=== PATIENT | male | born 1980 | race Caucasian/White ===

== ENCOUNTER → 2016-08-26 | Outpatient (CLI) | payer OTHER ==
[~2016-08-26] MED LIST: ALBUAER INH; LISI-461 PO; TPRSR25 PO
[2016-08-26 13:44] LABS: ALT/SGPT 28 U/L (12-78); AST/SGOT 18 U/L (15-37); BLOOD UREA NITROGEN 16 mg/dl (7-18); BUN/CREATININE RATIO 17.6 (10-20); CALCIUM 8.6 mg/dl (8.5-10.1); CARBON DIOXIDE 27 mmol/L (21-32); CHLORIDE 106 mmol/L (98-107); CHOLESTEROL 152 mg/dl (0-200); CREATININE 0.92 mg/dl (0.60-1.40); GLUCOSE 75 mg/dl (70-99); POTASSIUM 3.5 mmol/L (3.5-5.1); SODIUM 141 mmol/L (136-145); TRIGLYCERIDES 158 mg/dl (0-150); VERY LOW DENSITY LIPOPROT CALC 32 mg/dl
[2016-08-26 13:46] LABS: ALB/GLOB RATIO 1.3 (0.9-2); ALKALINE PHOSPHATASE 72 U/L (45-117); CHOLESTEROL/HDL RATIO 5.1; HDL CHOLESTEROL 30 mg/dl; LDL CHOLESTEROL CALCULATED 90 mg/dl
== END | disposition home or self-care (01) ==
LOC: C.LAB1850 11:40
PROVIDERS: ATTEND Internal Medicine Cardiovascular Disease
DX: Z00.00 Encounter for general adult medical examination without abnormal findings (principal); I42.9 Cardiomyopathy, unspecified; I47.1 Supraventricular tachycardia; I10 Essential (primary) hypertension; Z98.890 Other specified postprocedural states; Z72.0 Tobacco use

== ENCOUNTER → 2017-01-12 | Outpatient (CLI) | payer OTHER ==
--- NOTE | 2017-01-13 08:56 | PAP/PSG TECHNICIAN REPORT ---
[facility] Club Car Attendant Polysomnogram Report Study name: None Report date: 01/13/2017 Study date: 01/12/2017 Referring Physician: Adarsh Barros Name: FADI LACKEY Interpreting Physician: Jaime Arellano M.D. Date of : 1980 Club Car Attendant: Madeline Ramos [facility]. Sex: Male Age: 36 StudyType: PSG Weight: 280 lbs Height: 36 years, Height 5' 11" Neck Circum:18.5inches BMI: 39.05 Medications: Lisinopril, Metoprolol Patient History Study started on room air with no ETCO2 monitoring in room #8. 36 yr old male here tonight for a diagnostic psg. He was diagnosed with CASSIE and has auto cpap with a range of [id number]. He has lost about 15 pounds since his last study. He is here to see if there is a continued need for cpap treatment. He has not been using his cpap and he has no EDS. His ESS=4/14. Neck circ=18.5inches. He needs up at 4:25 am for work. Parameters Monitored NPSG: E1-M2, E2-M1, Fp1-M2, Fp2-M1, F3-M2, F4-M2, F4-M1, C3-M2, C4-M2, C4-M1, O1-M2, O2-M2, O2-M1, T3-M2, T4-M1, P3-M2, P4-M1, CHIN1, CHIN2, HR, EKG, Legs, PFLOW, SNOR, FLOW, CFLOW, Tidal Volume, THOR, ABDO, SpO2, PLTH, CPRESS, ETCO2 Wave, ETCO2, pH Sleep Architecture Sleep Stages Time at Lights Off 8:40:56 PM STAGES Time (min.) TST (%) Time at Lights On 4:25:26 AM Wake 82.0 -- Total Recording Time (TRT) 464.50 min. N1 23.0 6 Total Sleep Period (TSP) 413.0 min. N2 191.0 50 Total Sleep Time (TST) 382.5min. N3 73.0 19 Awake Time 82.0 min. REM 95.5 25 Wake after Sleep Onset 30.5 min. Sleep Efficiency (SE) 82 % Sleep Onset Latency (SALVADOR) 51.5 min. Number of Stage 1 Shifts None Awakenings 20 Stage Changes 91 Number of REM periods 8 REM 95.5 25 REM Latency 77.0 min. NREM 287.0 75 Body Position Analysis Supine Right Left Side Prone Vertical Total Sleep Time (min.) 4.9 138.7 201.5 340.15 55.0 0.0 Total Sleep Time (%) 0% 36% 53% 89 11% N/A% Total Sleep Time REM (min.) 0.0 58.5 34.0 None 3.0 0.0 Total Sleep Time NREM (min.) 0.0 80.2 167.5 None 39.3 0.0 Intermittent Wake (min.) 4.9 25.8 38.7 None 12.6 0.0 Total Sleep Period (%) 0% None None None None None Arousals Myoclonus (PLM) * Events Count Index Events Count Index Spontaneous 11 2 Events Awake (PLMW) 84 61.5 Respiratory 5 0.9 Events Asleep w/ Arousal (PLMA) 19 3.0 PLM 19 3 Events Asleep w/o Arousal (PLMS) 183 28.7 Snoring 8 1 Total Asleep 202 31.7 Total 43 7 Total 286 37 Respiratory Analysis * CA OA MA CH H RERA Total Count 0 2 0 0 36 0 38 Index 0.0 0.3 0.0 0 5.6 0 6.0 Mean Duration 0.0 18.3 0.0 0.00 25.8 0.0 25.4 Longest Duration 0.0 19.7 0.0 0.00 0.0 0.0 64.1 Respiratory Event Summary Total Supine ~Supine Right Left Prone REM NREM Apneas Count 2 N/A 2 0 2 0 0 2 Index 0.3 N/A 0 0.0 0.6 0 0 0 Hypopneas (4% Desat) Count 36 N/A 36 10 24 2 19 17 Index 5.6 N/A 6 4.3 7.1 2.8 11.9 3.6 Apneas & All Hypopneas Count 38 N/A 38 10 26 2 19 19 Index 6.0 N/A 6 4 8 3 11.9 4.0 Respiratory Events ([employer]+All Hyp+RERA) Count 38 N/A 38 10 26 2 19 19 Index 6.0 N/A 6 4.3 7.7 2.8 11.9 4.0 Respiratory Related Arousal Count 5 N/A 6 0 6 0 1 5 Index 0.9 N/A 1 0 2 0 1 1 Snoring Analysis Supine Right Left Prone REM NREM Total Snore duration 32.7 min Snores count N/A 468 739 468 121 1,554 1,675 Snore mean duration 1.2 Sec Snores index N/A 203 220 663 76.0 324.9 262.7 TST with snoring (%) 8.6% Desaturation Event Summary: Minimum %SpO2 Event Count Mean/Min/Max Duration(sec.) Desaturation Index % Time In Bed > 90 65 32.0 / 5.0 / 60.0 40.6 21.7 86 - 90 58 26.7 / 9.8 / 58.5 11.9 66.4 81 - 85 5 17.2 / 4.3 / 27.3 5.8 11.7 76 - 80 1 5.0 / 5.0 / 5.0 106.7 0.1 71 - 75 0 N/A 0.0 0.0 66 - 70 0 N/A 0.0 0.0 61 - 65 0 N/A 0.0 0.0 56 - 60 0 N/A 0.0 0.0 51 - 55 0 N/A 0.0 0.0 < 50 0 N/A 0.0 0.0 Total REM NREM Awake <50% 0.0 min. 0.0 min. 0.0 min. 0.0 min. 51 - 60% 0.0 min. 0.0 min. 0.0 min. 0.0 min. 61 - 70% 0.0 min. 0.0 min. 0.0 min. 0.0 min. 71 - 80% 0.6 min. 0.0 min. 0.2 min. 0.3 min. 81 - 90% 344.8 min. 72.8 min. 233.2 min. 38.8 min. 91 - 100% 96.0 min. 22.5 min. 39.3 min. 34.2 min. Average 89 88 88 90 Minimum SpO2 67 81 79 67 Desaturation Event Index 13.2 30.2 7.9 11.7 # Desat. Events below 89% 84 42 31 11 Time(%) with Saturation below 89% 44.6 10.3 32.5 1.8 Time(min.) with Saturation below 89% 197.0 45.5 143.6 7.8 Time (mins) REM (mins) NREM (mins) % of TST SpO2 Below 90% 85 48 N37 67.1 SpO2 Below 88% 35 0 0 35 Heart Rate Analysis Min (bpm) Max (bpm) Average (bpm) Awake 49 300 73 NREM 39 214 68 REM 49 85 65 Overall 39 214 67 Supplemental O2 Values Minimum O2 level: None Value Start Time End Time Club Car Attendant Comments Mr. Lackey slept in the right, left and prone positions. Cardiac arrhythmia and PLM's noted, see printouts. No bruxism noted. Snoring was noted and scored as a 2 on a scale of 1 through 5. (0=no snoring, 5=snoring loud enough to be heard through a closed door or down the [address] way). He did not use the restroom during the night. He stated that he slept a little worse than usual. He did not qualify for a split night study. The final report will be interpreted and signed by a sleep physician. The completed physician report will then be placed in the patient medical record. Therapy (cm H2O) 0 TIB (min.) 464.5 TST (min.) 382.5 Sleep Onset (min.) 51.5 REM Onset From Sleep (min.) 77.0 Sleep Efficiency % 82 Wakefulness (%) 18 Wakefulness (min.) 82.0 NREM 1 (%) 6 NREM 1 (min.) 23.0 NREM 2 (%) 50 NREM 2 (min.) 191.0 NREM 3 (%) 19 NREM 3 (min.) 73.0 REM (%) 25 REM (min.) 95.5 # Arousals 43 Arousal Index 7 # Snore 1,675 Snore Index 262.7 AHI 6.0 AHI Supine N/A AHI Non-Supine 6 NREM AHI 4.0 REM AHI 11.9 RDI 6.0 # Obstructive Apnea 2 # Central Apnea 0 # Mixed Apnea 0 # Hypopneas 36 RERAs 0 Total Respiratory Events 40 Time Below SpO2 89% (min.) 189.2 Mean NREM SpO2 (%) 88 Mean REM SpO2 (%) 88 Mean Sleep SpO2 (%) 88 Min NREM SpO2 (%) 79 Min REM SpO2 (%) 81 Position Supine (min.) 4.9 Position Non-supine (min.) 382.5 LM Index Sleep 31.7 LM Index NREM 38.7 LM Index REM 10.7 Mean Heart Rate (bpm) 67 Min Heart Rate (bpm) 39
--- NOTE | 2017-01-14 07:40 | POLYSOMNOGRAPH REPORT ---
CLINICAL DATA: A 36-year-old male with BMI of [address] Barros. He was diagnosed with sleep apnea and nocturnal hypoxemia. He was initially on CPAP 16 cm water pressure and mostly recently on auto CPAP. He lost 15 pounds and is here to see if he continues to need CPAP. He has no excessive daytime sleepiness. His [place] sleepiness score is 4/24. SLEEP ARCHITECTURE: Total recording time was 464.5 minutes. Total sleep period was 413 minutes. Total sleep time was 382.5 minutes, divided between 287 minutes of non-REM sleep and 95.5 minutes of REM sleep. Sleep onset latency was delayed at 51.5 minutes. REM latency was 77 minutes. Sleep efficiency was 82%. Wake after sleep onset was 30.5 minutes. Sleep consisted of stage N1 6%, stage N2 50%, stage N3 19%, and REM 25%. AROUSAL DATA: 43 arousals were recorded for an index of 7 per hour. 19 were due to PLMS events. PLM DATA: Mild to moderate PLMD was noted. There were 202 limb movements during sleep noted for an index of 31.7 per hour with arousal index of 3 per hour. RESPIRATORY DATA: Very mild sleep apnea was documented. The AHI was 6. There were 36 hypopneic episodes with mean duration of 25.8 seconds. OXIMETRY DATA: Nocturnal hypoxemia was seen. Oxygen debbie was 81% during REM. Mean saturation was 89%. Time below 88% was 35 minutes. EKG: Heart rates ranged from 39-85 beats per minute. Occasional PACs and PVCs were noted. RESOLUTION EXPERT'S COMMENTS: The patient slept in the right, left, and prone positions. Snoring was moderate, rated 2 on a scale of 1 through 5. IMPRESSION: Very mild sleep apnea/hypopnea with an AHI of 6 with nocturnal hypoxemia with an oxygen debbie of 79% and time below 88% of 35 minutes. RECOMMENDATIONS: The patient should continue to attempt to lose weight. He could be considered for use of an oral appliance, resumption of CPAP, or use of oxygen at night. Clinical correlation is needed. ADOLFO
== END | disposition home or self-care (01) ==
LOC: C.NEUR 20:00
DX: E66.01 Morbid (severe) obesity due to excess calories (principal); Z68.41 Body mass index [BMI] 40.0-44.9, adult; R09.02 Hypoxemia

== ENCOUNTER 2019-01-17 01:24 | Inpatient (IN) ==
[2019-01-17] MEDS ORDERED: ONDANSETRON INJ 2 MG/ML 2 ML VIAL IV STA (01:51)
[2019-01-17] MEDS ORDERED: MoRPHine SULFATE 4 MG/ML 1 ML CARP\\VIAL IV STA ×2 (01:51→04:16)
--- NOTE | 2019-01-17 01:59 | Emergency Department Note ---
History of Present Illness General Chief complaint: Flank Pain Stated complaint: PAIN IN SIDE, NAUSEA History of Present Illness Maximum Pain Intensity: 6 This 38-year-old presents to the ER complaining of right upper quadrant pain Location: Right upper quadrant Quality: Achy Severity: Moderate Duration: Tonight Timing: Started after eating peanut butter and jelly Context: Pain persisted and patient came in Modifying factors: better with nothing; worse with patient Patient states he has had problems with gallstones before. Symptoms feel somewhat similar. He still has his gallbladder. Patient denies chest pain, dyspnea, fevers, vomiting, diarrhea, urinary symptoms. Home Medications Home Medications Medication Instructions Recorded Confirmed Type lisinopril 20 1 tab PO DAILY #90 tab 11/05/18 01/17/19 Rx mg-hydrochlorothiazide 12.5 mg tablet metoprolol succinate ER 200 mg 200 mg PO DAILY #90 ea 11/05/18 01/17/19 Rx capsule sprinkle, ext. release 24 hr albuterol sulfate HFA 90 1 puffs INH Q6H PRN #6.7 gm 11/26/18 01/17/19 Rx mcg/actuation aerosol inhaler mometasone-formoterol HFA 200 2 puffs INH BID #13 gm 11/26/18 01/17/19 Rx mcg-5 mcg/actuation aerosol inhaler itraconazole 200 mg tablet 200 mg PO DAILY #30 tab 01/14/19 01/17/19 Rx Allergies Allergy/AdvReac Type Severity Reaction Status Date / Time No Known Allergies Allergy Unverified 01/17/19 02:01 Past Med/Surg History Medical History Cardiomyopathy (Acute) LBBB (left bundle branch block) (Acute) Obesity (Acute) Prediabetes (Acute) Sustained supraventricular tachycardia (Acute) Obstructive sleep apnea (Chronic) Polysomnography (03/16) demonstrated AHI 13.2, repeat (01/16) with AHI 6. Weight reduction recommended. No longer using CPAP. Tobacco use disorder (Chronic) In early remission. No pharmacologic intervention at this time. Hypertension (Chronic) Long standing managed with metoprolol + lisinopril + HCTZ Supraventricular tachycardia (Chronic) [place] to be due to concealed left-sided bypass tract, symptomatic episode (2014) s/p ablation. Initially with HFrEF now recovered. Continued on medical management with BB. Asthma (Chronic) Hx without PFTs on file. Managed with ICS/LABA + albuterol PRN Surgical History S/P ablation of accessory bypass tract (Acute) H/O cardiac radiofrequency ablation History of oral surgery Family History Other Adopted Social History marital status: Single Current Living Situation: Alone current occupational status: employed current occupation: cook Feels Safe at Home: Yes Smoking Status: Current every day smoker Hx Alcohol Use: Yes Alcohol Intake Frequency: Rarely Hx Substance Use: No Dental Care, Regularly: No Physical Activity Frequency: 1-2 Times per Week Seatbelt Use: always Sunscreen Use: Yes Review of Systems All systems reviewed & are unremarkable except as noted in HPI & below Physical Exam Vital Signs Vital Signs - 24 hr 01/17/19 01:34 01/17/19 03:09 01/17/19 03:58 Temperature 37.0 C Temperature Source Oral Sepsis Action Taken by Nursing No Action Required Oxygen Flow Rate - Titration Pulse Oximetry Post Tiitration Pulse Rate 91 H 72 81 Pulse Rate from SpO2 Sensor 73 79 Respiratory Rate 20 16 14 Respiratory Effort / Characteristics Non-Labored Spontaneous Respiratory Depth Normal Blood Pressure 144/99 H 163/104 H 134/100 Blood Pressure Mean 114 123 111 Pulse Oximetry 98 96 98 Oxygen Delivery Method Room Air Room Air 01/17/19 04:33 01/17/19 04:40 01/17/19 05:00 Temperature Temperature Source Sepsis Action Taken by Nursing Oxygen Flow Rate - Titration 2 Pulse Oximetry Post Tiitration 97 Pulse Rate 70 106 H Pulse Rate from SpO2 Sensor 64 88 Respiratory Rate 14 21 Respiratory Effort / Characteristics Respiratory Depth Blood Pressure 136/90 127/95 Blood Pressure Mean 105 105 Pulse Oximetry 99 87 L 100 Oxygen Delivery Method Room Air 01/17/19 05:30 Temperature Temperature Source Sepsis Action Taken by Nursing Oxygen Flow Rate - Titration Pulse Oximetry Post Tiitration Pulse Rate 64 Pulse Rate from SpO2 Sensor 65 Respiratory Rate 13 Respiratory Effort / Characteristics Respiratory Depth Blood Pressure 140/98 Blood Pressure Mean 112 Pulse Oximetry 99 Oxygen Delivery Method VITALS: Vitals are noted on the nurse's note and reviewed by myself. Vital signs stable. GENERAL: White male, in no acute distress, nondiaphoretic, well-developed well- nourished. SKIN: Capillary reflex less than 2 seconds. HEENT: Normocephalic. PERRLA. EOMI. Nares patent. Mucous membranes moist. Neck is supple without nuchal rigidity. HEART: Regular rate and rhythm without murmurs gallops or rubs. LUNGS: Clear to auscultation bilaterally without wheezes, rales or rhonchi. No retractions or accessory muscle use. ABDOMEN: Positive bowel sounds x 4. Normal tympanic percussion. Soft, tender to palpation right upper quadrant, without masses or organomegaly. No guardin g or rebound tenderness. No CVA tenderness MUSCULOSKELETAL: No gross musculoskeletal defects. NEURO: Patient was alert and oriented to person place and time. Normal sensation to light and sharp touch. No focal neurological deficits. Course Administered Medications Discontinued Medications Sodium Chloride (Nss 1000ml) 1,000 mls @ 999 mls/hr IV .Q1H1M FREDERICK Stop: 01/17/19 03:00 Last Infusion: 01/17/19 04:15 Dose: 0 mls/hr Documented by: [id number] Admin: 01/17/19 02:52 Dose: 999 mls/hr Documented by: [id number] Cefoxitin Sodium (Mefoxin) 2,000 mg in 60 mls @ 100 mls/hr IV NOW STA Stop: 01/17/19 05:46 Last Admin: 01/17/19 05:58 Dose: 100 mls/hr Documented by: [id number] Morphine Sulfate (Morphine Sulfate) 4 mg IV NOW STA Stop: 01/17/19 01:52 Last Admin: 01/17/19 02:52 Dose: 4 mg Documented by: [id number] Morphine Sulfate (Morphine Sulfate) 4 mg IV NOW STA Stop: 01/17/19 04:17 Last Admin: 01/17/19 04:23 Dose: 4 mg Documented by: [id number] Ondansetron HCl (Zofran) 4 mg IV NOW STA Stop: 01/17/19 01:52 Last Admin: 01/17/19 02:52 Dose: 4 mg Documented by: [id number] Medical Decision Making Medical Records Attestation: I reviewed the patient's medical records. Home Medications Current Medication List: was personally reviewed by me Laboratory Data Attestation: I reviewed the patient's lab results. Result diagrams: 01/17/19 01:58 01/17/19 01:58 Lab Results 01/17/19 01/17/19 01/17/19 Range/Units 01:58 01:58 02:10 WBC 8.01 (4.8-10.8) K/uL RBC 4.76 (4.7-6.1) M/uL Hgb 12.1 L (14.0-18.0) g/dL Hct 37.9 L (42-52) % MCV 79.6 L (80-100) fL MCH 25.4 (25-34) pg MCHC 31.9 L (32-36) g/dL RDW Std Deviation 51.2 H (36.4-46.3) fL RDW Coeff of Yazmin 17.8 H (11.5-14.5) % Plt Count 183 (130-400) K/uL MPV 9.4 (7.4-10.4) fL Immature Gran % (Auto) 0.5 % Neut % (Auto) 84.7 % Lymph % (Auto) 8.5 % [place] % (Auto) 5.2 % Eos % (Auto) 0.9 % Baso % (Auto) 0.2 % Immature Gran # (Auto) 0.04 H (0.00-0.02) K/uL Neut # (Auto) 6.78 H (1.4-6.5) K/uL Lymph # (Auto) 0.68 L (1.2-3.4) K/uL Harrison # (Auto) 0.42 (0.11-0.59) K/uL Eos # (Auto) 0.07 (0-0.5) K/uL Baso # (Auto) 0.02 (0-0.2) K/uL Sodium 137 (136-145) mmol/L Potassium 3.9 (3.5-5.1) mmol/L Chloride 102 (98-107) mmol/L Carbon Dioxide 30 (21-32) mmol/L Anion Gap 5.0 (3-11) BUN 12 (7-18) mg/dl Creatinine 1.16 (0.6-1.4) mg/dl Est Cr Clr Drug Dosing 117.7 ml/min Est GFR ( Amer) 90.8 Est GFR (Non-Af Amer) 78.3 BUN/Creatinine Ratio 10.6 (10-20) Glucose 122 H (70-99) mg/dl Calcium 8.8 (8.5-10.1) mg/dl Total Bilirubin 1.3 H (0.2-1) mg/dl AST 21 (15-37) U/L ALT 21 (12-78) U/L Alkaline Phosphatase 68 (45-117) U/L Total Protein 7.4 (6.4-8.2) gm/dl Albumin 3.6 (3.4-5.0) gm/dl Globulin 3.8 (2.5-4.0) gm/dl Albumin/Globulin Ratio 0.9 (0.9-2) Lipase 73 (73-393) U/L Urine Color Yellow Urine Appearance Clear (Clear) Urine pH 6.0 (4.5-7.5) Ur Specific [place] 1.021 (1.000-1.030) Urine Protein Negative (Negative) Urine Glucose (UA) Negative (Negative) Urine Ketones Negative (Negative) Urine Blood Negative (Negative) Urine Nitrite Negative (Negative) Urine Bilirubin Negative (Negative) Urine Urobilinogen Negative (Negative) Ur Leukocyte Esterase 1+ H (Negative) Urine WBC (Auto) 10-30 H (0-5) /hpf Urine RBC (Auto) 0-4 (0-4) /hpf U Hyaline Cast (Auto) 1-5 (0-5) /lpf U Epithel Cells (Auto) 5-10 H (0-5) /lpf Urine Bacteria (Auto) Negative (Negative) Imaging Data Attestation: I personally reviewed and interpreted this imaging study as follows: [facility] Narrative Prior records/ancillary studies reviewed. Triage Nursing notes reviewed. The patient's history was concerning for abdominal pain. Differential diagnosis: Etiologies such as appendicitis, diverticulitis, PUD, biliary pathology, UTI, pancreatitis, obstruction, mesenteric ischemia, aortic pathology, infections, inflammatory bowel disease, renal colic, as well as others were entertained. Physical examination findings: As above. ER treatment provided: Morphine, Zofran, IV fluids On reassessment the patient felt better. Diagnostics interpreted by me: The labs revealed no leukocytosis. Mild anemia. Imaging studies: US GALLBLADDER: Cholelithiasis. Nonspecific gallbladder wall thickening. Common bile duct within normal limits. Negative sonographic Ayala's sign. Correlate clinically regarding cholecystitis. Mild hepatomegaly. Radiologist: Karen Navarro M.D. Consultation: A consultation was placed with the surgeon Dr. Kinsey. The case was discussed and diagnostics were reviewed. He recommends medical admission and will evaluate the patient this morning. Medicine was consulted. Dr Cleveland was made aware of this patient. The patient was evaluated in the ER for further treatment. Exam and history seem consistent with acute cholecystitis. Surgery and medicine were consulted. Patient was placed on antibiotics. Patient is agreeable treatment plan of admission. Surgery is requesting medical admission for the patient's extensive medical history. By the evaluation outlined above emergent etiologies such as appendicitis, diverticulitis, PUD, biliary pathology, UTI, pancreatitis, obstruction, mesenteric ischemia, aortic pathology, infections, inflammatory bowel disease, renal colic, as well as others were deemed relatively unlikely. The pt informed about the findings as listed above. All questions were answered and pleased with the treatment. Case reviewed with my attending The chart was completed utilizing [employer] Speech voice recognition software. Grammatical errors, random word insertions, pronoun errors, and incomplete sentences are an occassional consequence of this system due to software limitations, ambient noise, and hardware issues. Any formal questions or concerns about the content, text, or information contained within the body of this dictation should be directly addressed to the physician library services assistant for clarification. Impression & Plan Acute cholecystitis Discharge Plan Visit Data Chief Complaint: Flank Pain Stated Complaint: PAIN IN SIDE, NAUSEA ED Provider: Azul Baker ED Midlevel Provider: Tram Zee Discharge Problem: Acute cholecystitis Patient Disposition: Being Evaluated by Hospitalist Condition: Good Forms Stand Alone Forms: My [facility] Prescriptions Prescriptions: No Action itraconazole 200 mg tablet 200 mg PO DAILY Qty: 30 RF: 0 albuterol sulfate 90 mcg/actuation HFA aerosol inhaler 1 puffs INH Q6H PRN (Reason: shortness of breath or wheezing) Qty: 6.7 RF: 0 Dulera 200-5 mcg/actuation HFA aerosol inhaler 2 puffs INH BID Qty: 13 RF: 0 metoprolol succinate 200 mg capsule,sprinkle,ER 24hr 200 mg PO DAILY Qty: 90 RF: 3 lisinopril-hydrochlorothiazide 20-12.5 mg tablet 1 tab PO DAILY Qty: 90 RF: 3 Referrals Referrals: Alfonso Tena MD [Primary Care Provider] -
[2019-01-17] MEDS ORDERED: SODIUM CHLORIDE 0.9% 1000ML 1,000 ML IV SCH (02:00)
[2019-01-17 02:32] LABS: Appearance Urine Clear (Clear); Bacteria Urine Automated Negative (Negative); Bilirubin Urine Negative (Negative); Blood Urine Negative (Negative); Color Urine Yellow; Glucose Urine UA Negative (Negative); Ketones Urine Negative (Negative); Leukocyte Esterase Urine 1+ (Negative); Nitrite Urine Negative (Negative); Protein Urine Negative (Negative); RBC Urine Automated 0-4 /hpf (0-4); Specific Gravity Urine 1.021 (1.000-1.030); Urobilinogen Urine Negative (Negative)
[2019-01-17 02:37] LABS: Basophils # (auto) 0.02 K/uL (0-0.2); Basophils % (auto) 0.2 %; Eosinophils # (auto) 0.07 K/uL (0-0.5); Eosinophils % (auto) 0.9 %; Hematocrit (blood only) 37.9 % (42-52); Hemoglobin 12.1 g/dL (14.0-18.0); Immature Granulocytes # (auto) 0.04 K/uL (0.00-0.02); Immature Granulocytes % (auto) 0.5 %; Lymphocytes # (auto) 0.68 K/uL (1.2-3.4); Lymphocytes % (auto) 8.5 %; Mean Corpuscular Hemoglobin 25.4 pg (25-34); Mean Corpuscular Hgb Conc 31.9 g/dL (32-36); Mean Corpuscular Volume 79.6 fL (80-100); Mean Platelet Volume 9.4 fL (7.4-10.4); Monocytes # (auto) 0.42 K/uL (0.11-0.59); Monocytes % (auto) 5.2 %; Neutrophils # (auto) 6.78 K/uL (1.4-6.5); Neutrophils % (auto) 84.7 %; Platelet Count 183 K/uL (130-400); RDW Coefficient of Variation 17.8 % (11.5-14.5); RDW Standard Deviation 51.2 fL (36.4-46.3); Red Blood Count 4.76 M/uL (4.7-6.1); White Blood Count 8.01 K/uL (4.8-10.8)
[2019-01-17 02:54] LABS: Albumin Level 3.6 gm/dl (3.4-5.0); BUN Creatinine Ratio 10.6 (10-20); Calcium 8.8 mg/dl (8.5-10.1); Creatinine Clr Calc Pharmacy 117.7 ml/min; Est GFR (African American) 90.8; Est GFR (Non-African American) 78.3; Potassium 3.9 mmol/L (3.5-5.1)
[2019-01-17 02:57] LABS: Albumin Globulin Ratio 0.9 (0.9-2); Bilirubin,Total 1.3 mg/dl (0.2-1); Globulin 3.8 gm/dl (2.5-4.0); Total Protein 7.4 gm/dl (6.4-8.2)
[2019-01-17] MEDS ORDERED: cefOXitin 2,000 MG/60 ML BAG IV STA (05:11)
--- NOTE | 2019-01-17 06:19 | Ultrasound Report ---
US gallbladder HISTORY: Pain ruq pain COMPARISON: None. FINDINGS: Several gallstones are present. 6 mm thickening of the gallbladder wall. No significant. Cystic/parac ystic cholecystic edematous change. Uniform liver. Common bile duct 5 mm. Pancreas and right kidney are unremarkable. IMPRESSION: 1. Gallstones. 2. Thickened gallbladder wall 6 mm. 3. Normal caliber bile ducts. The above report was generated using voice recognition software. It may contain grammatical, syntax or spelling errors. Electronically signed by: Rob aPdron M.D. 01/17/2019 6:18 AM
--- NOTE | 2019-01-17 06:26 | History & Physical Report ---
Date of Service January 17, 2019 Assessment & Plan (1) Acute cholecystitis: 38 y/o M Hx HTN, WPW, nonischemic cardiomyopathy, LBBB, obese, asthma, DM II, gallstones, CASSIE. Presents with RUQ pain and nausea. He denies a fever or vomiting. The pt states that he has had prior episodes of biliary colic but has not required intervention. Labs in the ER were notable for mild anemia which appears to be new. An US demonstrated several gallstones and thickening of the gallbladder wall. Of note, the pt has a small rash on his L arm which was recently diagnosed as fungal. He is prescribed Itraconazole but has not yet commenced this. 1) Gallstones with biliary colic - may be developing cholecystitis - clinically less likely. The pt will be evaluated by surgery. Considering his cardiac history, we have not cleared him for potential surgery and will consult his cook 3 pastry. Interestingly, he has an easily audible murmur which is not reported on prior exams and may therefore need an additional echo. 2) Anemia - new - low MCV - we will obtain a stool guaiac, iron profile and a repeat Hb at 6 hours to determine if there is any active bleeding. GI should be contacted in this case. 3) HTN - will continue Metoprolol and hold Lisinopril/HCTZ 4) Asthma - cont prescribed inhalers 5) Fungal rash - will start Itraconazole Full code - SCDs pending surgery eval Total time for this admit including review of labs, meds, records, imaging - discussion wih pt and ER attending - 40 min Present on Admission?: Yes History of Present Illness Chief Complaint: RUQ pain Primary Care Provider: Alfonso Tena MD 38 y/o M Hx HTN, WPW, nonischemic cardiomyopathy, LBBB, obese, asthma, DM II, gallstones, CASSIE. Presents with RUQ pain and nausea. He denies a fever or vomiting. The pt states that he has had prior episodes of biliary colic but has not required intervention. Labs in the ER were notable for mild anemia which appears to be new. An US demonstrated several gallstones and thickening of the gallbladder wall. Of note, the pt has a small rash on his L arm which was recently diagnosed as fungal. He is prescribed Itraconazole but has not yet commenced this. PMH: 1) Nonischemic cardiomyopathy - EF in 2017 was 45%. Pt states that this has since normalized. Cause was not determined. 2) HTN 3) Obese 4) CASSIE 5) Asthma 6) DM II - per recent A1C 7) Prior history of cholelithiasis/choledocholithiasis 8) WPW Surgical: Ablation for WPW 2017 Social: Quit smoking cigarettes recently - has taken up vaping instead. Does not drink. Employed at the [employer]. Family: Adopted - does not know biological history Allergies Allergy/AdvReac Type Severity Reaction Status Date / Time No Known Allergies Allergy Unverified 01/17/19 02:01 Home Medications Home Medications Medication Instructions Recorded Confirmed Type lisinopril 20 1 tab PO DAILY #90 tab 11/05/18 01/17/19 Rx mg-hydrochlorothiazide 12.5 mg tablet metoprolol succinate ER 200 mg 200 mg PO DAILY #90 ea 11/05/18 01/17/19 Rx capsule sprinkle, ext. release 24 hr albuterol sulfate HFA 90 1 puffs INH Q6H PRN #6.7 gm 11/26/18 01/17/19 Rx mcg/actuation aerosol inhaler mometasone-formoterol HFA 200 2 puffs INH BID #13 gm 11/26/18 01/17/19 Rx mcg-5 mcg/actuation aerosol inhaler itraconazole 200 mg tablet 200 mg PO DAILY #30 tab 01/14/19 01/17/19 Rx Past Med/Surg History Medical History Cardiomyopathy (Acute) LBBB (left bundle branch block) (Acute) Obesity (Acute) Prediabetes (Acute) Sustained supraventricular tachycardia (Acute) Obstructive sleep apnea (Chronic) Polysomnography (03/16) demonstrated AHI 13.2, repeat (01/16) with AHI 6. Weight reduction recommended. No longer using CPAP. Tobacco use disorder (Chronic) In early remission. No pharmacologic intervention at this time. Hypertension (Chronic) Long standing managed with metoprolol + lisinopril + HCTZ Supraventricular tachycardia (Chronic) [place] to be due to concealed left-sided bypass tract, symptomatic episode (2014) s/p ablation. Initially with HFrEF now recovered. Continued on medical management with BB. Asthma (Chronic) Hx without PFTs on file. Managed with ICS/LABA + albuterol PRN Surgical History S/P ablation of accessory bypass tract (Acute) H/O cardiac radiofrequency ablation History of oral surgery Family History Other Adopted Social History marital status: Single Current Living Situation: Alone current occupational status: employed current occupation: cook Feels Safe at Home: Yes Smoking Status: Current every day smoker Hx Alcohol Use: Yes Alcohol Intake Frequency: Rarely Hx Substance Use: No Dental Care, Regularly: No Physical Activity Frequency: 1-2 Times per Week Seatbelt Use: always Sunscreen Use: Yes Review of Systems Review of Systems: Gen: Denies fevers, night sweats, rigors, fatigue, malaise, weight loss/gain ENT: Denies congestion, throat pain, hearing loss Eyes: Denies acute visual changes CV: Denies CP, palpitations Pulmonary: Denies SOB, cough, wheezing GI: RUQ pain Neuro: Denies acute or unilateral weakness, acute gait impairment, headache or acute visual changes Musculoskeletal: Denies joint pain, inflammation Endocrine: Denies polydipsia, polyuria Skin: Rash on L arm Physical Exam Physical Exam: General: AAO x 3, no distress ENT: No erythema or exudates, no thrush Eyes: BRANDI, EOMI Head and neck: Normocephalic, atraumatic, No JVD, neck is supple. Chest/heart: Nontender, S1,2, RRR, 2/6 murmur Lungs: CTAB, no wheezing or crackles Abdomen: Mildly tender in upper quadrant Neuro: AAO x 3, speech is clear, no unilateral weakness or loss of sensation, coordination intact Musculoskeletal: No joint inflammation, muscle tenderness, FROM Skin: Dry scaly rash on L proximal arm Extremities: No clubbing, cyanosis, edema Results & Data Vital Signs (Past 12 Hours) Vital Signs Temp Pulse Resp BP Pulse Ox 01/17/19 05:30 64 13 140/98 99 01/17/19 05:00 106 H 21 127/95 100 01/17/19 04:40 87 L 08/18/19 04:33 70 14 136/90 99 01/17/19 03:58 81 14 134/100 98 01/17/19 03:09 72 16 163/104 H 96 01/17/19 01:34 98.6 F 91 H 20 144/99 H 98 Diagnostic Findings US abdomen: Several gallstones are present. 6 mm thickening of the gallbladder wall. Code Status & VTE Plan VTE Prophylaxis Plan VTE Prophylaxis will be ordered: Yes PG Care Time/CCT Total # of Minutes Spent Total Time Spent with Patient: Total time spent is greater than 50% in coordination of care (as documented) at patient's floor/unit and/or counseling patient:
[2019-01-17 08:09] LABS: Albumin Level 3.7 gm/dl (3.4-5.0); Bilirubin Direct 0.2 mg/dl (0-0.2); Bilirubin,Total 1.2 mg/dl (0.2-1); Total Protein 7.5 gm/dl (6.4-8.2)
[2019-01-17] MEDS ORDERED: NON-FORMULARY MEDICATION (Mometasone-Formoterol [Dulera] 2 PUFFS) INH SCH (09:12)
[2019-01-17] MEDS ORDERED: ACETAMINOPHEN 325 MG TAB PO PRN (09:12)
[2019-01-17] MEDS ORDERED: ALBUTEROL HFA 8 GM INHALER INH PRN ×2 (09:12)
[2019-01-17] MEDS ORDERED: ITRACONAZOLE 200 MG PO SCH ×2 (09:12)
[2019-01-17] MEDS ORDERED: METOPROLOL SUCCINATE 200 MG PO SCH (09:12)
[2019-01-17] MEDS ORDERED: MoRPHine SULFATE 4 MG/ML 1 ML CARP\\VIAL IV PRN (09:22)
[2019-01-17] MEDS: LACTATED RINGER'S 1,000 ML IV SCH ×2 (09:44→20:12)
[2019-01-17 10:01] LABS: Iron 38 mcg/dl (35-175); Total Iron Binding Capacity 243 mcg/dl (250-450)
--- NOTE | 2019-01-17 10:56 | Magnetic Resonance Report ---
Study: MRCP HISTORY: Right upper quadrant pain. COMPARISON: Ultrasound 01/17/2019 FINDINGS: Large gallstone in the gallbladder neck region. Edematous changes are gallbladder wall poss ibly with a trace amount of pericholecystic edematous change. Normal caliber bile ducts. Compromise resolution of the biliary ductal system due to respiratory and somatic motion. Probable spasm versus less likely possibility of filling defect distal common bile duct. No significa nt distention of the pancreatic duct. Configuration of the liver and spleen are otherwise unremarkable. Kidneys are negative for hydronephr osis. No significant abdominal adenopathy. IMPRESSION: 1. Mildly compromised exam due to respiratory and splenic motion. 2. Gallstones with gallbladder wall thickening as well as a probable component of pericholecystic russell matous change. 3. Appearance is suggestive of acute cholecystitis. 4. Normal caliber bile ducts. 5. Probable focal spasm distal common duct. Electronically signed by: Rob Padron M.D. 01/17/2019 10:53 AM
[2019-01-17] MEDS ORDERED: HYDROmorphone INJ 2 MG/ML SYR/VIAL IV PRN (11:06)
--- NOTE | 2019-01-17 11:20 | Surgery Consultation ---
Date of Consultation January 17, 2019 Assessment & Plan (1) Acute cholecystitis: clinically c/w cholecystitis keep npo/antibiotics MRCP for elevated Tbili shows no stone/likely distal spasm of CBD awaiting cardiac evaluation. tentatively planning lap jonathan tomorrow if ok with cardiology discussed risks ( bleeding/infection/dvt/pe/mi/cva/bile leaks/injury to another organ etc...) questions answered. pt agreeable. (2) Cardiomyopathy: (3) LBBB (left bundle branch block): History of Present Illness Attending Physician: John Anthony History of Present Illness pt starting having epigastric pain last night around 6 pm. some nausea. presented to ER and US shows likely cholecystitis. Allergies Allergy/AdvReac Type Severity Reaction Status Date / Time No Known Allergies Allergy Unverified 01/17/19 02:01 Home Medications Home Medications Medication Instructions Recorded Confirmed Type lisinopril 20 1 tab PO DAILY #90 tab 11/05/18 01/17/19 Rx mg-hydrochlorothiazide 12.5 mg tablet metoprolol succinate ER 200 mg 200 mg PO DAILY #90 ea 11/05/18 01/17/19 Rx capsule sprinkle, ext. release 24 hr albuterol sulfate HFA 90 1 puffs INH Q6H PRN #6.7 gm 11/26/18 01/17/19 Rx mcg/actuation aerosol inhaler mometasone-formoterol HFA 200 2 puffs INH BID #13 gm 11/26/18 01/17/19 Rx mcg-5 mcg/actuation aerosol inhaler itraconazole 200 mg tablet 200 mg PO DAILY #30 tab 01/14/19 01/17/19 Rx Patient History Medical History Cardiomyopathy (Acute) LBBB (left bundle branch block) (Acute) Obesity (Acute) Prediabetes (Acute) Sustained supraventricular tachycardia (Acute) Obstructive sleep apnea (Chronic) Polysomnography (03/16) demonstrated AHI 13.2, repeat (01/16) with AHI 6. Weight reduction recommended. No longer using CPAP. Tobacco use disorder (Chronic) In early remission. No pharmacologic intervention at this time. Hypertension (Chronic) Long standing managed with metoprolol + lisinopril + HCTZ Supraventricular tachycardia (Chronic) [place] to be due to concealed left-sided bypass tract, symptomatic episode (2014) s/p ablation. Initially with HFrEF now recovered. Continued on medical management with BB. Asthma (Chronic) Hx without PFTs on file. Managed with ICS/LABA + albuterol PRN Surgical History S/P ablation of accessory bypass tract (Acute) H/O cardiac radiofrequency ablation History of oral surgery Family History Other Adopted Social History marital status: Single Current Living Situation: Alone current occupational status: employed current occupation: cook Feels Safe at Home: Yes Smoking Status: Current every day smoker Hx Alcohol Use: Yes Alcohol Intake Frequency: Rarely Hx Substance Use: No Dental Care, Regularly: No Physical Activity Frequency: 1-2 Times per Week Seatbelt Use: always Sunscreen Use: Yes Review of Systems Review of Systems: All systems reviewed & are unremarkable except as noted in HPI & below Physical Exam Constitutional: WD/WN, vitals as above no acute distress and not ill appearing Eyes: PERRL, conjunctivae normal, anicteric sclerae EOM intact bilaterally ENMT: external ear and nose normal, oropharynx normal Ears: no hearing impairment Neck: trachea midline, no thyromegaly Respiratory: normal respiratory effort; no respiratory distress and does not use accessory muscles Cardiovascular: Rate/Rhythm: regular rate and regular rhythm Gastrointestinal (Abdomen): soft. +epigastric/RUQ ttp. +guarding. no rigidity. Skin: no rashes, warm and dry Psychiatric: Orientation: alert, oriented x 3 and cooperative Results & Data Vital Signs (Past 12 Hours) Vital Signs Temp Pulse Pulse Resp BP BP Pulse Ox 01/17/19 08:23 36.9 C 65 18 158/106 H 96 01/17/19 08:15 78 22 149/108 H 98 01/17/19 05:30 64 13 140/98 99 01/17/19 05:00 106 H 21 127/95 100 01/17/19 04:40 87 L 01/17/19 04:33 70 14 136/90 99 01/17/19 03:58 81 14 134/100 98 01/17/19 03:09 72 16 163/104 H 96 01/17/19 01:34 37.0 C 91 H 20 144/99 H 98 PG Care Time/CCT Total # of Minutes Spent Total Time Spent with Patient: Total time spent is greater than 50% in coordination of care (as documented) at patient's floor/unit and/or counseling patient:
[2019-01-17] MEDS: HYDROmorphone INJ 1 MG/ML SYRINGE IV PRN ×2 (11:22→17:04)
[2019-01-17] MEDS: METOPROLOL SUCC 50MG EXT REL TAB PO SCH (11:38)
[2019-01-17] MEDS: ACETAMINOPHEN 1,000 MG/100 ML VIAL IV SCH ×2 (11:38→20:12)
--- NOTE | 2019-01-17 15:06 | Cardiology Consultation ---
Date of Consultation January 17, 2019 Assessment & Plan (1) Cardiomyopathy: The patient was diagnosed with a nonischemic cardiomyopathy in November 2014. Fortunately, that has resolved. His most recent echocardiogram performed in January 2016 noted normal left ventricular systolic ejection fraction of 55-60%. He continues on metoprolol succinate and lisinopril. (2) LBBB (left bundle branch block): This represents a chronic finding. (3) Supraventricular tachycardia: The patient had an ablation of a concealed left-sided bypass tract back in November 2014. No a arrhythmias since that time. (4) Preoperative cardiovascular examination: Acceptable cardiac risk for a cholecystectomy. Would consider a baseline EKG and chest x-ray. History of Present Illness Attending Physician: John Anthony History of Present Illness Mr. Floyd is a 38-year-old male admitted earlier today with acute cholecystitis. This consultation was ordered as a preoperative evaluation. Of note, the patient typically follows with Dr. Mendes in the outpatient setting. The patient was in his usual state of health until last evening at approximately 7 p.m.. He had the abrupt onset of a left-sided abdominal discomfort. The patient explains that he experienced this previously, however, never his severe as it was last night. He eventually presented to the emergency room for further care. He was diagnosed with acute cholecystitis and admitted for a surgical intervention. The patient is vigorous on a daily basis. 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 He explains that he is up and down stairs all day. He also takes his dog on a hike several days each week. He has never experienced exertional chest pain or limiting dyspnea. He further denies syncope, presyncope, PND, orthopnea, palpitations, lower extremity edema, and claudication. The patient's cardiac history began in November 2014 when he presented with refractory, symptomatic supraventricular tachycardia. He was taken urgently to the EP lab and Dr. Hoover ablated a concealed left-sided bypass tract. 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 In any event, he has done well from arrhythmia standpoint. At that same time, he was diagnosed with a nonischemic cardiomyopathy. His ejection fraction was 30-40%. He was placed on lisinopril and a long-acting beta-soren and fortunately, his left ventricular systolic function improved. An echocardiogram performed in January 2016 noted ejection fraction 55-60%. He will remain on his medications indefinitely. Currently, patient is resting comfortably in bed without complaints. His parents are at the bedside. Past medical and surgical history 1. Hypertension 2. Nonischemic slmqmgqvlmeoch-qvunpdns-isq above 3. Uttsz-Dehanjbcd-Giwft syndrome 4. Concealed left-sided bypass tract-radiofrequency ablation, November 2014 5. LBBB 6. Obesity 7. Obstructive sleep apnea 8. Asthma Social history Works as a cook at the [employer] Quit tobacco use 2 months ago. Ten pack year history Occasional alcohol Family history Unknown as the patient was adopted Review of systems A 10 point review of systems was negative except for that described above. Allergies Allergy/AdvReac Type Severity Reaction Status Date / Time No Known Allergies Allergy Unverified 01/17/19 02:01 Home Medications Home Medications Medication Instructions Recorded Confirmed Type lisinopril 20 1 tab PO DAILY #90 tab 11/05/18 01/17/19 Rx mg-hydrochlorothiazide 12.5 mg tablet metoprolol succinate ER 200 mg 200 mg PO DAILY #90 ea 11/05/18 01/17/19 Rx capsule sprinkle, ext. release 24 hr albuterol sulfate HFA 90 1 puffs INH Q6H PRN #6.7 gm 11/26/18 01/17/19 Rx mcg/actuation aerosol inhaler mometasone-formoterol HFA 200 2 puffs INH BID #13 gm 11/26/18 01/17/19 Rx mcg-5 mcg/actuation aerosol inhaler itraconazole 200 mg tablet 200 mg PO DAILY #30 tab 01/14/19 01/17/19 Rx Patient History Medical History Cardiomyopathy (Acute) LBBB (left bundle branch block) (Acute) Obesity (Acute) Prediabetes (Acute) Sustained supraventricular tachycardia (Acute) Obstructive sleep apnea (Chronic) Polysomnography (03/16) demonstrated AHI 13.2, repeat (01/16) with AHI 6. Weight reduction recommended. No longer using CPAP. Tobacco use disorder (Chronic) In early remission. No pharmacologic intervention at this time. Hypertension (Chronic) Long standing managed with metoprolol + lisinopril + HCTZ Supraventricular tachycardia (Chronic) [place] to be due to concealed left-sided bypass tract, symptomatic episode (2014) s/p ablation. Initially with HFrEF now recovered. Continued on medical management with BB. Asthma (Chronic) Hx without PFTs on file. Managed with ICS/LABA + albuterol PRN Surgical History S/P ablation of accessory bypass tract (Acute) H/O cardiac radiofrequency ablation History of oral surgery Family History Other Adopted Social History Preferred Language: Slovak Communication Ability: Effective Field Laboratory Operator Required: No Beliefs That Will Affect Care: None marital status: Single Current Living Situation: Alone current occupational status: employed current occupation: cook Feels Safe at Home: Yes Smoking Status: Former smoker Second Hand Exposure: No ; Hx Alcohol Use: Yes Alcohol type: beer Alcohol Intake Frequency: Rarely Hx Substance Use: No Dental Care, Regularly: No Physical Activity Frequency: 1-2 Times per Week Seatbelt Use: always Sunscreen Use: Yes Physical Exam Physical Exam: In general this is an obese white male in no acute distress. HEENT exam is negative. Neck is supple with full carotid upstrokes. There are no carotid bruits. Jugular venous pressure is flat at 90. There is no thyromegaly. Cardiovascular exam reveals a regular rhythm with a normal S1 and S2. No S3, S4, or murmurs are noted. Lungs are clear without rales, rhonchi, or wheezes. Abdomen is soft without bruits. Extremities reveal intact radial artery and posterior tibial pulses bilaterally. There is no peripheral edema. Results & Data Vital Signs (Past 12 Hours) Vital Signs Temp Pulse Pulse Resp BP BP Pulse Ox 01/17/19 08:23 36.9 C 65 18 158/106 H 96 01/17/19 08:15 78 22 149/108 H 98 01/17/19 05:30 64 13 140/98 99 01/17/19 05:00 106 H 21 127/95 100 01/17/19 04:40 87 L 01/17/19 04:33 70 14 136/90 99 01/17/19 03:58 81 14 134/100 98 01/17/19 03:09 72 16 163/104 H 96 Laboratory Results PEDIATRIC ALLERGIST notes a hemoglobin of 12.1, hematocrit 37.9, white count 8.0, and platelet count [id number]. The electrolytes note the sodium 137, potassium 3.9, chloride 102, bicarb 30, BUN 12, creatinine 1.16, glucose 122. Diagnostic Findings Gallbladder ultrasound notes a thickened gallbladder wall with evidence of gallstones. MRCP notes gallstones, gallbladder wall thickening, and localized edematous changes. PG Care Time/CCT Total # of Minutes Spent Total Time Spent with Patient: Total time spent is greater than 50% in coordination of care (as documented) at patient's floor/unit and/or counseling patient:
[2019-01-17] MEDS: DULERA - ORDER AWAITING ACTION SCH (16:36)
[2019-01-17] MEDS: AMPICILLIN/SULBACTAM SOD 3,000 MG in 0.9 % SODIUM CHLORIDE 100 ML IV SCH ×2 (17:05→21:57)
--- NOTE | 2019-01-17 17:19 | XRay Report ---
XR chest 1V portable CLINICAL HISTORY: pre-op clearance preop COMPARISON STUDY: 12/29/2014 FINDINGS: Moderate cardiomegaly. Lungs are clear. Diaphragms are smooth. IMPRESSION: Moderate cardiomegaly. Otherwise negative study. The above report was generated using voice recognition software. It may contain grammatical, syntax or spelling errors. Electronically signed by: Rob Padron M.D. 01/17/2019 5:17 PM
[2019-01-18] MEDS: DULERA - ORDER AWAITING ACTION SCH ×3 (00:17→15:25)
[2019-01-18] MEDS: ACETAMINOPHEN 1,000 MG/100 ML VIAL IV SCH ×3 (04:28→20:36)
[2019-01-18] MEDS: LACTATED RINGER'S 1,000 ML IV SCH ×3 (04:28→15:25)
[2019-01-18] MEDS: AMPICILLIN/SULBACTAM SOD 3,000 MG in 0.9 % SODIUM CHLORIDE 100 ML IV SCH ×4 (04:58→22:28)
[2019-01-18] MEDS ORDERED: PROPOFOL IV EMULSION 10 MG/ML 20 ML VIAL IV ONE (07:43)
[2019-01-18] MEDS ORDERED: MIDAZOLAM HCL 1 MG/ML 2ML VIAL ONE (07:43)
[2019-01-18] MEDS ORDERED: fentaNYL citrate 100 MCG/2 ML VIAL ONE (07:43)
[2019-01-18] MEDS ORDERED: LIDOCAINE HCL 2% 2 ML VIAL/AMP(20MG/ML) INFIL ONE (07:43)
[2019-01-18 07:45] LABS: Albumin Level 3.3 gm/dl (3.4-5.0); Bilirubin Direct 0.3 mg/dl (0-0.2); Bilirubin,Total 1.7 mg/dl (0.2-1); Total Protein 7.3 gm/dl (6.4-8.2)
[2019-01-18] MEDS: METOPROLOL SUCC 50MG EXT REL TAB PO SCH (08:02)
--- NOTE | 2019-01-18 08:08 | History & Physical Bridge Note ---
Date of Service January 18, 2019 History & Physical Bridge Note I have examined the patient, reviewed the History & Physical and in the interval since the performance of the History & Physical I have noted the following changes of clinical significance: no changes noted ok per cardiology. will proceed with zack castillo today.
[2019-01-18] MEDS ORDERED: ATROPINE SULFATE 0.1 MG/ML 10ML SYR IV PRN (08:35)
[2019-01-18] MEDS ORDERED: ONDANSETRON INJ 2 MG/ML 2 ML VIAL IV PRN (08:35)
[2019-01-18] MEDS ORDERED: PROMETHAZINE HCL 6.25 MG in SODIUM CHLORIDE 0.9% 50 ML IV PRN (08:35)
[2019-01-18] MEDS ORDERED: ePHEDrine sulfate 50 MG/ML AMP IV PRN (08:35)
--- NOTE | 2019-01-18 08:35 | Anesthesiology Consultation ---
Date of Service January 18, 2019 HTN Obesity Hx SVT E-cigarette use CASSIE (Non compliant with CPAP) Assessment & Plan (1) Encounter for pre-operative examination: Chart Review Chart Review: Acceptable Risk for Surgery and Patient NOT seen in Pre Admission Testing Consults Requested none ASA ASA2 Proposed Anesthesia Anesthesia Type: General Risk / Benefits Reviewed With: PT / POA / Parent / Guardian, Accepts Plan and Informed Consent Obtained History Surgery Operation Date: 01/17/19 07:00 Proposed Procedures p Laparoscopic Cholecystectomy - Sang Kinsey DO Operation Date: 01/18/19 08:35 Proposed Procedures p Laparoscopic Cholecystectomy - Sang Kinsey, DO Height/Weight Height: 5 ft 11 in Weight: 132.8 kg Allergies Allergy/AdvReac Type Severity Reaction Status Date / Time No Known Allergies Allergy Unverified 01/17/19 02:01 Medications Home Medications Medication Instructions Recorded Confirmed Last Taken lisinopril 20 1 tab PO DAILY #90 tab 11/05/18 01/17/19 Unknown mg-hydrochlorothiazide 12.5 mg tablet metoprolol succinate ER 200 mg 200 mg PO DAILY #90 ea 11/05/18 01/17/19 Unknown capsule sprinkle, ext. release 24 hr albuterol sulfate HFA 90 1 puffs INH Q6H PRN #6.7 gm 11/26/18 01/17/19 Unknown mcg/actuation aerosol inhaler mometasone-formoterol HFA 200 2 puffs INH BID #13 gm 11/26/18 01/17/19 Unknown mcg-5 mcg/actuation aerosol inhaler itraconazole 200 mg tablet 200 mg PO DAILY #30 tab 01/14/19 01/17/19 Unknown Active Medications Generic Name Dose Route Start Last Admin Trade Name Freq PRN Reason Stop Dose Admin Hydromorphone HCl 1 mg 01/17/19 11:06 01/17/19 17:04 Dilaudid IV 01/31/19 11:05 1 mg Q1H PRN Administration Pain Lactated Ringer's 1,000 mls @ 125 mls/hr 01/17/19 09:12 01/18/19 06:32 Lr IV 02/16/19 09:11 125 mls/hr .Q8H [facility] Infusion Acetaminophen 1,000 mg in 100 mls @ 400 mls/hr 01/17/19 12:00 01/18/19 04:49 Ofirmev IV 02/16/19 11:59 Infused Q8H [facility] In[facility] Ampicillin Sodium/Sulbactam 108 mls @ 200 mls/hr 01/17/19 17:00 01/18/19 05:41 Sodium 3,000 mg/ Sodium IV 01/27/19 16:59 Infused Chloride Q6H [facility] In[facility] Protocol Metoprolol Succinate 200 mg 01/17/19 09:12 01/18/19 08:02 Toprol Xl PO 02/16/19 06:30 200 mg DAILY [facility] Administration Miscellaneous 1 ea 01/17/19 16:00 01/18/19 07:41 Order Awaiting Action N/A 02/16/19 15:59 Not Given QS [facility] NPO Date Last Intake of Fluids: 01/18/19 Time Last Intake of Fluids: 08:00 Last Intake of Fluids Comment: sip of water with medications Date Last Intake of Solids: 01/17/19 Time Last Intake of Solids: 23:59 Past Medical History Medical History Cardiomyopathy (Acute) LBBB (left bundle branch block) (Acute) Obesity (Acute) Prediabetes (Acute) Sustained supraventricular tachycardia (Acute) Obstructive sleep apnea (Chronic) Polysomnography (03/16) demonstrated AHI 13.2, repeat (01/16) with AHI 6. Weight reduction recommended. No longer using CPAP. Tobacco use disorder (Chronic) In early remission. No pharmacologic intervention at this time. Hypertension (Chronic) Long standing managed with metoprolol + lisinopril + HCTZ Supraventricular tachycardia (Chronic) Willet to be due to concealed left-sided bypass tract, symptomatic episode (2014) s/p ablation. Initially with HFrEF now recovered. Continued on medical management with [facility]. Asthma (Chronic) Hx without PFTs on file. Managed with ICS/LABA + albuterol PRN Exercise / Class Metabolic Activity II 4-5 Yardwork/Stairs/Walk up hill Past Family History Family History Other Adopted Past Surgical History Surgical History S/P ablation of accessory bypass tract (Acute) H/O cardiac radiofrequency ablation History of oral surgery Past Anesthesia History No Hx of Anesthesia Complications and No Family Hx of Anesthesia Complications History of PONV No Hx of PONV and No Hx of Motion Sickness Social History Smoking Status: Former smoker tobacco type: e-cigarettes Do You Dip or Chew Tobacco: No Hx Alcohol Use: Yes Alcohol type: beer alcohol intake frequency: holidays/special occasions only Hx Substance Use: No Physical Exam Vital Signs Last Vital Signs Temp 37.0 C 01/18/19 07:35 Pulse 64 01/18/19 07:35 Resp 18 01/18/19 07:35 BP 128/86 01/18/19 07:35 Pulse Ox 93 01/18/19 07:35 ENMT Mouth: no dentition abnormality Thyromental Distance: > or= 3.5 Finger Breadths Mallampati Class: II Neck normal visual inspection Respiratory normal respiratory effort Auscultation: lungs clear to auscultation bilaterally Cardiovascular Rate/Rhythm: regular rate and regular rhythm Psychiatric Orientation: alert Testing Laboratory Results 01/17/19 12:56 01/17/19 01:58 Urine Color Yellow 01/17/19 02:10 Urine Appearance Clear (Clear) 01/17/19 02:10 Urine pH 6.0 (4.5-7.5) 01/17/19 02:10 Ur Specific [place] 1.021 (1.000-1.030) 01/17/19 02:10 Urine Protein Negative (Negative) 01/17/19 02:10 Urine Glucose (UA) Negative (Negative) 01/17/19 02:10 Urine Ketones Negative (Negative) 01/17/19 02:10 Urine Nitrite Negative (Negative) 01/17/19 02:10 Ur Leukocyte Esterase 1+ (Negative) H 01/17/19 02:10 Urine WBC (Auto) 10-30 /hpf (0-5) H 01/17/19 02:10 Urine RBC (Auto) 0-4 /hpf (0-4) 01/17/19 02:10 U Hyaline Cast (Auto) 1-5 /lpf (0-5) 01/17/19 02:10 U Epithel Cells (Auto) 5-10 /lpf (0-5) H 01/17/19 02:10 Urine Bacteria (Auto) Negative (Negative) 01/17/19 02:10 01/18/19 01/17/19 06:02 21:08 POC Glucose 99 112 H Electrocardiogram Date: 01/17/19 Findings: + NSR @
[2019-01-18] MEDS ORDERED: BUPIVACAINE/EPINEPHRINE 0.5% MPF 1:200,000 30 ML VIAL ONE (08:46)
[2019-01-18] MEDS ORDERED: ROCURONIUM BROMIDE 10 MG/ML 5 ML VIAL ONE (09:00)
[2019-01-18] MEDS ORDERED: CEFAZOLIN 250 MG/ML 1 GM VIAL ONE (09:00)
[2019-01-18] MEDS ORDERED: GLYCOPYRROLATE 0.2 MG/ML VIAL ONE ×2 (09:08→09:58)
[2019-01-18] MEDS ORDERED: NEOSTIGMINE METHYLSULFATE 5 MG/5 ML SYR ONE (09:08)
[2019-01-18 09:11] LABS: Hematocrit (blood only) 39.3 % (42-52); Hemoglobin 12.5 g/dL (14.0-18.0); Mean Corpuscular Hemoglobin 25.6 pg (25-34); Mean Corpuscular Hgb Conc 31.8 g/dL (32-36); Mean Corpuscular Volume 80.5 fL (80-100); Mean Platelet Volume 9.5 fL (7.4-10.4); Platelet Count 210 K/uL (130-400); RDW Standard Deviation 52.7 fL (36.4-46.3); Red Blood Count 4.88 M/uL (4.7-6.1); White Blood Count 10.08 K/uL (4.8-10.8)
[2019-01-18 09:43] LABS: BUN Creatinine Ratio 9.8 (10-20); Calcium 8.9 mg/dl (8.5-10.1); Creatinine Clr Calc Pharmacy 142.2 ml/min; Est GFR (African American) 114.1; Est GFR (Non-African American) 98.5
--- NOTE | 2019-01-18 10:01 | Operative Report ---
Post Operative Report Pre & Post Diagnosis Operation Date: 01/17/19 07:00 <No data on this case meets the specified criteria> Operation Date: 01/18/19 08:35 Pre-Op Diagnosis: cholecystitis Post-Op Diagnosis: acute cholecystitis Procedure Operation Date: 01/17/19 07:00 <No data on this case meets the specified criteria> Operation Date: 01/18/19 08:35 Actual Procedures p Laparoscopic Cholecystectomy - Sang Kinsey DO Surgeon Sang Kinsey DO Inspector Barrel tayler Sim Estimated Blood Loss 20 Findings Consistent with Post-Op Diagnosis Specimens gallbladder Description of Procedure After informed consent was obtained the patient was taken to the operating room and placed in the supine position. After successful intubation the abdomen was sterilely prepped and draped in usual fashion. A periumbilical incision was made with an 11 blade scalpel and carried down through the soft tissue using electrocautery. The anterior rectus fascia was opened using electrocautery and 2 #0 Vicryl stay sutures were placed. The peritoneum was elevated with hemostats and incised under direct vision using Metzenbaum scissors. A finger sweep was performed and a 12 mm Brink trocar was placed. The abdomen was insufflated to 20 mmHg. The laparoscope was inserted and the abdomen was examined in 360. No gross abnormalities were identified other than the gallbladder was obviously grossly inflammed. A subxiphoid 5 mm port and 2 right upper quadrant 5 mm ports were placed under direct vision. The patient was placed in a reverse Trendelenburg position and slightly airplaned to the left. Initially the gallbladder was too inflamed to grab with graspers. I therefore use a gallbladder needle and syringe to suck out about 30 cc of clear fluid indicating a cystic duct obstruction. Once we drained the gallbladder, the gallbladder was grasped and elevated superiorly and laterally. A [place] dissector was used to take down adhesions around the neck of the gallbladder. The cystic duct was identified and skeletonized. It was clipped twice proximally and once distally and transected using a laparoscopic scissor. In similar fashion the cystic artery was identified and skeletonized clipped and divided. There was also a posterior branch that was clipped and divided also. The gallbladder was removed from the gallbladder fossa with electrocautery. It was placed into an Endo Catch bag. Thorough irrigation was performed. At the end of the procedure there was adequate hemostasis and no evidence of any bile leaks. A final look around the abdomen showed no other abnormalities. The gallbladder and trochars were all removed and the abdomen was desufflated. I did have to extend the periumbilical incision to get the gallbladder and stones out. The fascia of the camera port was closed using 0 Vicryl in a [id number] fashion. All the wounds were irrigated and closed using 3-0 Vicryl and 4-0 Monocryl. Marcaine was injected around them for postoperative analgesia and skin glue used as a dressing. The patient was awaken extubated and transferred to recovery in stable condition. My physician's esol teacher assistant was present throughout the entire case... helped with prepping the patient. With exposure for trocar placement, as well as retracted the gallbladder throughout the case and also assisted with wound closure and dressing placement. I attest to the content of the Intraoperative Record and any orders documented therein. Any exceptions are noted below.
[2019-01-18] MEDS: fentaNYL citrate 100 MCG/2 ML VIAL IV PRN ×4 (10:03→10:18)
[2019-01-18] MEDS ORDERED: TRAMADOL HCL 50 MG TABLET PO PRN (10:50)
--- NOTE | 2019-01-18 10:52 | Anesthesiology Progress Note ---
Date of Service January 18, 2019 Anesthesia Post Procedure Vital Signs Vital Signs: Temp Pulse Pulse Resp BP Pulse Ox 01/18/19 10:45 37.0 C 62 18 116/74 92 01/18/19 10:36 37.2 C 60 15 103/74 92 01/18/19 10:25 56 L 18 112/67 95 01/18/19 10:15 63 18 116/81 95 01/18/19 10:05 36.9 C 53 L 18 117/83 96 01/18/19 09:57 36.9 C 42 L 18 119/58 L 99 01/18/19 08:38 36.9 C 76 18 136/98 92 01/18/19 07:35 37.0 C 64 18 128/86 93 01/18/19 06:07 36.9 C 64 16 137/92 92 01/17/19 22:58 36.8 C 66 16 126/77 92 01/17/19 16:37 57 L 145/82 H 01/17/19 15:28 36.7 C 65 18 156/111 H 93 Pain Intensity Right Upper Abdomen: Pain Intensity: 4 Transfer of Care Handoff Completed per policy Notes Mental Status: alert / awake / arousable Patient Amnestic to Procedure: Yes Nausea / Vomiting: adequately controlled Pain: adequately controlled Airway Patency, RR, SpO2: stable & adequate BP & HR: stable & adequate Hydration State: stable & adequate Anesthetic Complications: no major complications apparent
[2019-01-18] MEDS ORDERED: ONDANSETRON INJ 2 MG/ML 2 ML VIAL ONE (11:02)
--- NOTE | 2019-01-18 14:02 | Hospitalist Progress Note ---
Date of Service January 18, 2019 Assessment & Plan (1) Acute cholecystitis: US demonstrated several gallstones and thickening of the gallbladder wall. Cholecystectomy 01/18 Cardiology consulted for surgical clearance due to cardiac history (2) LBBB (left bundle branch block): chronic (3) Cardiomyopathy: Diagnosed with a nonischemic cardiomyopathy in November 2014. now resolved. His most recent echocardiogram performed in January 2016 noted normal left ventricular systolic ejection fraction of 55-60%. Continue metoprolol succinate and lisinopril. (4) S/P ablation of accessory bypass tract: The patient had an ablation of a concealed left-sided bypass tract back in November 2014. No arrhythmias since that time. (5) Hypertension: continue Metoprolol and hold Lisinopril/HCTZ (6) Asthma: cont prescribed inhalers (7) Anemia: New - low MCV - we will obtain a stool guaiac, iron profile and a repeat Hb at 6 hours to determine if there is any active bleeding. GI should be contacted in this case. (8) Rash: Fungal rash - continue Itraconazole (9) DVT prophylaxis: SCDs Supervising Physician Co-Signing Physician Notes I have seen and examined pt and agree with NINOSKA Child exam , assessment and plan. Subjective Mr. Marsh is post cholecystectomy. He has some soreness at incision sites but otherwise has no complaints Review of Systems Review of Systems: All systems reviewed & are unremarkable except as noted in HPI & below Physical Exam Physical Exam: General: no distress Eyes: normal inspection, PERLL Respiratory: chest non tender, clear to auscultation, normal breath sounds, no respiratory distress, no accessory muscle use Cardiac: regular rate and rhythm, no rub or gallop, no murmur, no edema, no jvd GI/: active bowel sounds, no abd pain or tenderness, soft, non distended Extremities: normal range of motion, normal strength, non tender Neuro/Psych: alert and oriented x 3, normal mood and affect Skin: normal color, dry Results & Data Vital Signs (Past 12 Hours) Vital Signs Temp Pulse Pulse Resp BP Pulse Ox 01/18/19 13:36 37.1 C 65 18 130/85 93 01/18/19 12:45 37 C 79 18 143/85 H 93 01/18/19 11:36 36.8 C 65 18 139/95 95 01/18/19 11:15 36.6 C 74 18 124/75 96 01/18/19 10:45 37.0 C 62 18 116/74 92 01/18/19 10:36 37.2 C 60 15 103/74 92 01/18/19 10:25 56 L 18 112/67 95 01/18/19 10:15 63 18 116/81 95 01/18/19 10:05 36.9 C 53 L 18 117/83 96 01/18/19 09:57 36.9 C 42 L 18 119/58 L 99 01/18/19 08:38 36.9 C 76 18 136/98 92 01/18/19 07:35 37.0 C 64 18 128/86 93 01/18/19 06:07 36.9 C 64 16 137/92 92 PG Care Time/CCT Total # of Minutes Spent Total Time Spent with Patient: Total time spent is greater than 50% in coordination of care (as documented) at patient's floor/unit and/or counseling patient:
[2019-01-19] MEDS: DULERA - ORDER AWAITING ACTION SCH ×2 (00:24→08:37)
[2019-01-19] MEDS: LACTATED RINGER'S 1,000 ML IV SCH ×2 (00:48→09:42)
[2019-01-19] MEDS: ACETAMINOPHEN 1,000 MG/100 ML VIAL IV SCH (04:11)
[2019-01-19] MEDS: AMPICILLIN/SULBACTAM SOD 3,000 MG in 0.9 % SODIUM CHLORIDE 100 ML IV SCH ×2 (04:52→10:48)
[2019-01-19 06:47] LABS: Hematocrit (blood only) 35.3 % (42-52); Hemoglobin 11.1 g/dL (14.0-18.0); Mean Corpuscular Hemoglobin 25.3 pg (25-34); Mean Corpuscular Hgb Conc 31.4 g/dL (32-36); Mean Corpuscular Volume 80.6 fL (80-100); Mean Platelet Volume 9.4 fL (7.4-10.4); Platelet Count 161 K/uL (130-400); RDW Coefficient of Variation 17.9 % (11.5-14.5); RDW Standard Deviation 52.8 fL (36.4-46.3); Red Blood Count 4.38 M/uL (4.7-6.1); White Blood Count 8.28 K/uL (4.8-10.8)
[2019-01-19 07:25] LABS: BUN Creatinine Ratio 10.3 (10-20); Bilirubin Direct 0.2 mg/dl (0-0.2); Calcium 8.5 mg/dl (8.5-10.1); Creatinine Clr Calc Pharmacy 137.9 ml/min; Est GFR (Non-African American) 94.9
[2019-01-19 07:33] LABS: Bilirubin,Total 1.1 mg/dl (0.2-1); Total Protein 6.5 gm/dl (6.4-8.2)
--- NOTE | 2019-01-19 08:22 | Anesthesiology Progress Note ---
Date of Service January 19, 2019 Anesthesia Post Procedure Vital Signs Vital Signs: Temp Pulse Pulse Resp BP Pulse Ox 01/19/19 06:55 36.6 C 53 L 16 135/84 93 01/19/19 03:16 36.9 C 77 18 127/85 92 01/18/19 23:25 37.4 C 72 16 113/74 92 01/18/19 19:53 37.2 C 66 18 131/85 91 01/18/19 15:13 36.9 C 65 18 129/89 93 01/18/19 13:36 37.1 C 65 18 130/85 93 01/18/19 12:45 37 C 79 18 143/85 H 93 01/18/19 11:36 36.8 C 65 18 139/95 95 01/18/19 11:15 36.6 C 74 18 124/75 96 01/18/19 10:45 37.0 C 62 18 116/74 92 01/18/19 10:36 37.2 C 60 15 103/74 92 01/18/19 10:25 56 L 18 112/67 95 01/18/19 10:15 63 18 116/81 95 01/18/19 10:05 36.9 C 53 L 18 117/83 96 01/18/19 09:57 36.9 C 42 L 18 119/58 L 99 01/18/19 08:38 36.9 C 76 18 136/98 92 Pain Intensity Right Upper Abdomen: Pain Intensity: 4 Notes Mental Status: alert / awake / arousable and participated in evaluation Patient Amnestic to Procedure: Yes Nausea / Vomiting: adequately controlled Pain: adequately controlled Airway Patency, RR, SpO2: stable & adequate BP & HR: stable & adequate Hydration State: stable & adequate Anesthetic Complications: no major complications apparent and Pt Satisfied with anesthetic care
--- NOTE | 2019-01-19 08:30 | Surgery Progress Note ---
Date of Service January 19, 2019 Assessment & Plan (1) Acute cholecystitis: doing well pod 1 no acute issues. bilirubin decreased today ok for d/c from my standpoint f/u 1-2 weeks. Subjective pt seen. feeling well. would like to go home. Physical Exam Physical Exam: alert. oriented. nad. abd: soft. expected tenderness. Results & Data Vital Signs (Past 12 Hours) Vital Signs Temp Pulse Resp BP Pulse Ox 01/19/19 06:55 36.6 C 53 L 16 135/84 93 01/19/19 03:16 36.9 C 77 18 127/85 92 01/18/19 23:25 37.4 C 72 16 113/74 92 PG Care Time/CCT Total # of Minutes Spent Total Time Spent with Patient: Total time spent is greater than 50% in coordination of care (as documented) at patient's floor/unit and/or counseling patient:
[2019-01-19] MEDS: METOPROLOL SUCC 50MG EXT REL TAB PO SCH (08:39)
--- NOTE | 2019-01-19 10:15 | Discharge Summary ---
Date of Service January 19, 2019 Admission HPI Per Admitting Provider 38 y/o M Hx HTN, WPW, nonischemic cardiomyopathy, LBBB, obese, asthma, DM II, gallstones, CASSIE. Presents with RUQ pain and nausea. He denies a fever or vomiting. The pt states that he has had prior episodes of biliary colic but has not required intervention. Labs in the ER were notable for mild anemia which appears to be new. An US demonstrated several gallstones and thickening of the gallbladder wall. Of note, the pt has a small rash on his L arm which was recently diagnosed as fungal. He is prescribed Itraconazole but has not yet commenced this. PMH: 1) Nonischemic cardiomyopathy - EF in 2017 was 45%. Pt states that this has since normalized. Cause was not determined. 2) HTN 3) Obese 4) CASSIE 5) Asthma 6) DM II - per recent A1C 7) Prior history of cholelithiasis/choledocholithiasis 8) WPW Surgical: Ablation for WPW 2017 Social: Quit smoking cigarettes recently - has taken up vaping instead. Does not drink. Employed at the [employer]. Family: Adopted - does not know biological history Principal Diagnosis Cholecystitis Discharge Exam Constitutional WD/WN, vitals as above Respiratory normal respiratory effort, lungs clear to auscultation Cardiovascular RRR, no murmur, no edema Gastrointestinal (Abdomen) Inspection/Auscultation: abdomen normal to inspection and normal bowel sounds; abdomen not distended Percussion/Palpation: + abdomen tender and abdomen soft Musculoskeletal no cyanosis or clubbing, extremities motor strength 5/5 Skin no rashes, warm and dry Neurologic moves all extremities and awake Psychiatric A+Ox3, euthymic affect Discharge Data Allergies Allergy/AdvReac Type Severity Reaction Status Date / Time No Known Allergies Allergy Unverified 01/17/19 02:01 Consultations 01/17/19 05:31 ED Decision to Admit Stat 01/17/19 09:12 Consult Cardiology Routine Consult General Surgery Routine Procedures Performed Operation Date: 01/17/19 07:00 <No data on this case meets the specified criteria> Operation Date: 01/18/19 08:35 Actual Procedures p Laparoscopic Cholecystectomy - Sang Kinsey, Ordered Studies 01/17/19 01:51 US gallbladder Urgent 01/17/19 07:36 MR MRCP Stat Hospital Course (1) Acute cholecystitis: US demonstrated several gallstones and thickening of the gallbladder wall. Cholecystectomy 01/18 - bilirubin trending down, surgery ok with discharge today Cardiology consulted for surgical clearance due to cardiac history - they did not recommend any further testing and cleared him for surgery (2) LBBB (left bundle branch block): chronic (3) Cardiomyopathy: Diagnosed with a nonischemic cardiomyopathy in November 2014. now resolved. His most recent echocardiogram performed in January 2016 noted normal left ventricular systolic ejection fraction of 55-60%. Continue metoprolol succinate and lisinopril. (4) S/P ablation of accessory bypass tract: The patient had an ablation of a concealed left-sided bypass tract back in November 2014. No arrhythmias since that time. (5) Hypertension: continue Metoprolol and Lisinopril/HCTZ (6) Asthma: cont prescribed inhalers (7) Anemia: New - low MCV - unable to obtain a stool guaiac while admitted Hgb has stayed stable 11-12 over the last couple days. No s/s of bleeding. Discussed with patient that if he had any blood in his stool or dark tarry stools he should talk call his provider. Otherwise he can follow up at his next appointment. Will start him on iron for low normal iron level of 38 and low MCV. (8) Rash: Fungal rash - continue Itraconazole and continue to follow with dermatology outpatient (9) DVT prophylaxis: SCDs Total Time Total Time Spent Total Time Spent (In Minutes): greater than 30 minutes Discharge Plan Discharge Items Patient Disposition: Home - Self-Care Reason For Visit: RUQ PAIN Discharge Diagnosis: laparoscopic cholecystectomy Condition: Good Discharge Goals: Decrease discomfort Activity: Per 'Additional Instructions' section Lifting: No more than 10 pounds Bathing: No limitations Bathing Comment: ok to shower Driving/Machine Use: Resume 3 days after discharge Non-emergency contact: Surgeon Call non-emergency contact if: you have any medication questions, your pain is not controlled, you have a fever, your temperature is above 101.5 and your wound has increased redness Follow-up/Referrals: Sang Kinsey DO [Surgeon] - (Call to make an appt in approx 2 weeks) Alfonso eTna MD [Primary Care Provider] - Diet: Regular Addtl Provider Instructions: Please see your primary care provider within about a week. Please wait to return to work until you are seen by your primary care provider. You should let your provider know if you have not had a bowel movement within the next couple of days. You will take antibiotics for 4 more days. Please follow up with your primary care provider concerning your anemia. You will go home with a prescription for iron. Sometimes this medication can cause stomach upset or constipation. You can take it every other day if you cannot tolerate daily. Please tell your primary care provider if you see blood in your stool or if your stools are dark and tarry. The iron tablets may turn your stools dark as well. Prescriptions: New tramadol [Ultram] 50 mg tablet 50 - 100 mg PO Q4H PRN (Reason: pain) Qty: 15 RF: 0 cefdinir 300 mg capsule 300 mg PO BID 4 Days Qty: 8 RF: 0 metronidazole 500 mg tablet 500 mg PO Q8H 4 Days Qty: 12 RF: 0 ferrous sulfate 325 mg (65 mg iron) Tablet,Delayed Release (Dr/Ec) 325 mg PO QAM Qty: 30 RF: 0 Continued itraconazole 200 mg tablet 200 mg PO DAILY Qty: 30 RF: 0 albuterol sulfate 90 mcg/actuation HFA aerosol inhaler 1 puffs INH Q6H PRN (Reason: shortness of breath or wheezing) Qty: 6.7 RF: 0 Dulera 200-5 mcg/actuation HFA aerosol inhaler 2 puffs INH BID Qty: 13 RF: 0 metoprolol succinate 200 mg capsule,sprinkle,ER 24hr 200 mg PO DAILY Qty: 90 RF: 3 lisinopril-hydrochlorothiazide 20-12.5 mg tablet 1 tab PO DAILY Qty: 90 RF: 3 Stand-Alone Forms: [place] [facility] [employer] [facility]/Other Patient Handouts: Metronidazole Oral tablet, Cefdinir Oral capsule Discharge Orders: Discharge Order (Routine); Ordered 01/19/19 Ordered By: Khushbu Clark Admission Data Admit Date/Time: 01/17/19 06:16 Attending Provider: Shelli Mijares Admit Provider: Robert Cleveland Primary Care Provider: Alfonso Tena Other Providers: Robert Cleveland ; Bryce Mendes ; Sang Kinsey ; John Anthony Service: Medical
[2019-01-20] MEDS ORDERED: FERROUS SULFATE 325 MG TAB PO SCH (09:00)
--- NOTE | 2019-01-22 12:44 | Coding Query ---
Agree with your documentation. PATHOLOGY To promote full compliance with coding requirements relating to patient care, physician participation is requested in all cases of automatic washer mechanic uncertainty. Please assist us with the question(s) below: Please review the Pathology report and please document any relevant diagnosis(es) below: Diagnosis(es): Pathology confirms acute on chronic cholecystitis with cholelithiasis Thank you Sara MATA
== END 2019-01-19 12:40 | disposition home or self-care (01) | DRG 418 ==
LOC: ED 01:24 → 3W 06:16 → SUATTDRO 06:16 → 3W 08:15

== ENCOUNTER 2021-12-22 11:25 | Observation (INO) ==
--- NOTE | 2021-12-22 11:55 | Emergency Department Note ---
History of Present Illness General Chief complaint: Abdominal Pain Stated complaint: ABDOMINAL PAIN Time Seen by Provider: 12/22/21 11:37 Source: patient Mode of arrival: ambulatory Limitations: no limitations History of Present Illness Maximum Pain Intensity: 6 This patient is a 41-year-old male who presents to the emergency department for evaluation of abdominal pain. Patient reports that he has been having right- sided abdominal pain intermittently for the past several weeks. He states that he has the pain almost daily and nothing seems to trigger the pain. He denies any aggravating or alleviating factors. He reports some associated nausea with the pain but no vomiting. He states he was seen here few weeks ago for this and had a work-up and was told that he was dehydrated. He states that the episodes of pain have continued. They seem to occur at random. He has had a severe episode of pain this morning. His pain has decreased slightly since then and he rates his current discomfort a 6/10. The pain radiates into his back at times. He has not followed up with his primary care provider or any other outpatient providers regarding the pain. He denies any fever/chills, changes in bowel movements or urinary symptoms. Home Medications Medication Instructions Recorded Confirmed Type metoprolol succinate 200 mg 200 mg PO DAILY #90 tabs 04/05/21 12/22/21 Rx tablet,extended release 24 hr (Toprol XL) amlodipine 5 mg tablet 5 mg PO DAILY #90 tabs 05/02/21 12/22/21 Rx lisinopril 40 mg tablet (Zestril) 40 mg PO QAM #30 tabs 12/23/21 Rx pantoprazole 40 mg tablet,delayed 40 mg PO BID #60 tabs 12/23/21 Rx release (Protonix) Allergies Allergy/AdvReac Type Severity Reaction Status Date / Time No Known Allergies Allergy Verified 12/22/21 15:42 Past Med/Surg History Medical History Acute cholecystitis Asthma Hx without PFTs on file. Managed with ICS/LABA + albuterol PRN Cardiomyopathy Dyslipidemia Hypertension Long standing managed with metoprolol + lisinopril + HCTZ LBBB (left bundle branch block) Obesity Obstructive sleep apnea Polysomnography (03/16) demonstrated AHI 13.2, repeat (01/16) with AHI 6. Weight reduction recommended. No longer using CPAP. 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 Initially with HFrEF now recovered. Continued on medical management with BB. Tobacco use disorder Surgical History H/O cardiac radiofrequency ablation History of oral surgery Hx laparoscopic cholecystectomy (01/18/19) Laparoscopic Cholecystectomy Dr. Kinsey 01-18-19 S/P ablation of accessory bypass tract Family History Other Adopted Social History Smoking Status: Former smoker Tobacco Type: E-cigarettes / Vaping Second Hand Exposure: No; Hx Alcohol Use: Yes Alcohol type: beer Hx Substance Use: Yes Last Used Substance Other:: "early November" Preferred Language: Filipino Communication Ability: Effective Leather Etcher Required: No Beliefs That Will Affect Care: None marital status: Single Current Living Situation: Alone current occupational status: employed current occupation: cook Feels Safe at Home: Yes Dental Care, Regularly: No Physical Activity Frequency: 1-2 Times per Week Seatbelt Use: always Sunscreen Use: Yes Assistive Devices: Contacts and Glasses Review of Systems A total of 10 systems reviewed and were otherwise negative Physical Exam Vital Signs Vital Signs - 24 hr 12/22/21 11:31 12/22/21 11:26 12/22/21 11:53 Temperature 36.8 C Temperature Source Temporal Artery Scan Pulse Rate 82 78 Pulse Rate [Apical] 77 Pulse Rate from SpO2 Sensor Respiratory Rate 18 22 18 Respiratory Effort / Characteristics Non-Labored Spontaneous Blood Pressure 122/74 Blood Pressure [Right Arm] 101/73 Blood Pressure Mean 90 Blood Pressure Mean [Right Arm] 82 Pulse Oximetry 97 95 95 Oxygen Delivery Method Room Air Room Air Room Air Sepsis Recent Fever Within 48 Hours No Sepsis New/Unexplained Change in Mental Status N/A Sepsis Action Taken by Nursing No Action Required 12/22/21 13:26 12/22/21 15:20 12/22/21 12:42 Temperature Temperature Source Pulse Rate 81 Pulse Rate [Apical] 84 75 Pulse Rate from SpO2 Sensor 84 Respiratory Rate 21 21 18 Respiratory Effort / Characteristics Blood Pressure Blood Pressure [Right Arm] 102/81 121/71 Blood Pressure Mean Blood Pressure Mean [Right Arm] 88 87 Pulse Oximetry 98 98 99 Oxygen Delivery Method Room Air Room Air Sepsis Recent Fever Within 48 Hours Sepsis New/Unexplained Change in Mental Status Sepsis Action Taken by Nursing 12/22/21 14:06 12/22/21 16:00 12/22/21 17:00 Temperature Temperature Source Pulse Rate 78 75 Pulse Rate [Apical] 69 Pulse Rate from SpO2 Sensor Respiratory Rate 20 14 21 Respiratory Effort / Characteristics Blood Pressure Blood Pressure [Right Arm] 131/87 Blood Pressure Mean Blood Pressure Mean [Right Arm] 101 Pulse Oximetry 96 Oxygen Delivery Method Room Air Sepsis Recent Fever Within 48 Hours Sepsis New/Unexplained Change in Mental Status Sepsis Action Taken by Nursing VITALS: Vitals are noted on the nurse's note and reviewed by myself. GENERAL: This is a 41-year-old male, in no acute distress, well-developed well- nourished. SKIN: The skin was without rashes. EARS: External auditory canals clear, tympanic membranes pearly maciel without erythema or effusion bilaterally. EYES: Pupils equal round and reactive to light and accommodation. No scleral icterus. MOUTH: Mucous membranes moist. NECK: Supple without nuchal rigidity. No lymphadenopathy. HEART: Regular rate and rhythm without murmurs gallops or rubs. LUNGS: Clear to auscultation bilaterally without wheezes, rales or rhonchi. No retractions or accessory muscle use. ABDOMEN: Positive bowel sounds x 4. Soft, nontender to palpation. No guarding or rebound tenderness. NEURO: Patient was alert and oriented to person place and time. Course Administered Medications Discontinued Medications Acetaminophen (Acetaminophen 325 Mg Tab) 650 mg PO Q4H PRN PRN Reason: pain/fever Stop: 01/21/22 18:44 Last Admin: 12/23/21 07:23 Dose: 650 mg Documented By: [id number] Hydrox/Mg Hydrox/Simethicone (Gi Cocktail Ed Use) 1 dose PO ONE STA Stop: 12/22/21 16:42 Last Admin: 12/22/21 17:30 Dose: 1 dose Documented By: [email or web address] Amlodipine Besylate (Amlodipine Besylate 5 Mg Tab) 5 mg PO DAILY FREDERICK Stop: 01/22/22 08:59 Last Admin: 12/23/21 08:05 Dose: 5 mg Documented By: [id number] Famotidine (Famotidine 20mg/5ml Iv Push) 20 mg IV NOW STA Stop: 12/22/21 16:46 Last Admin: 12/22/21 17:30 Dose: 20 mg Documented By: VARSHA Hydromorphone HCl (Hydromorphone Inj 1 Mg/Ml Syringe) 1 mg IV NOW STA Stop: 12/22/21 15:31 Last Admin: 12/22/21 15:42 Dose: 1 mg Documented By: MERLY Sodium Chloride (Nss 1000ml) 1,000 mls @ 999 mls/hr IV .Q1H1M ONE Stop: 12/22/21 16:30 Last Infusion: 12/22/21 16:44 Dose: 0 mls/hr Documented By: Admin: 12/22/21 15:43 Dose: 999 mls/hr Documented By: MERLY Lactated Ringer's (Lr) 1,000 mls @ 125 mls/hr IV .Q8H FREDERICK Stop: 01/21/22 20:14 Last Infusion: 12/23/21 11:51 Dose: 0 mls/hr Documented By: [id number] Admin: 12/23/21 04:01 Dose: 125 mls/hr Documented By: Infusion: 12/23/21 04:01 Dose: 125 mls/hr Documented By: Admin: 12/22/21 20:30 Dose: 125 mls/hr Documented By: MO Pantoprazole Sodium 40 mg/ (Syringe) 10 mls @ 5 mls/min IV BID FREDERICK Stop: 01/22/22 08:59 Last Admin: 12/23/21 08:05 Dose: 5 mls/min Documented By: [id number] Lisinopril (Lisinopril 40 Mg Tab) 40 mg PO QAM FREDERICK Stop: 01/22/22 08:59 Last Admin: 12/23/21 08:05 Dose: 40 mg Documented By: [id number] Metoprolol Succinate (Metoprolol Succ 50mg Ext Rel Tab) 200 mg PO DAILY FREDERICK Stop: 01/22/22 08:59 Last Admin: 12/23/21 08:05 Dose: Not Given Documented By: [id number] Ondansetron HCl (Ondansetron Inj 2 Mg/Ml 2 Ml Vial) 4 mg IV NOW STA Stop: 12/22/21 15:31 Last Admin: 12/22/21 15:42 Dose: 4 mg Documented By: MERLY Potassium Chloride (Potassium Chloride Crtab 20 Meq Tabcr) 40 meq PO NOW STA Stop: 12/23/21 09:15 Last Admin: 12/23/21 10:00 Dose: 40 meq Documented By: [id number] Medical Decision Making Differential Diagnosis Appendicitis, testicular torsion, infections, diverticulitis, UTI, obstruction, mesenteric ischemia, aortic pathology, inflammatory bowel disease, renal colic, PUD, pancreatitis, biliary pathology, hernia, volvulus, constipation, as well as other pathologies. Home Medications Current Medication List: was personally reviewed by me Laboratory Data Attestation: I reviewed the patient's lab results. Result diagrams: 12/22/21 11:56 12/23/21 06:06 Lab Results 12/22/21 12/22/21 12/22/21 Range/Units 11:56 11:56 13:23 WBC 8.96 (4.8-10.8) K/ul RBC 5.25 (4.63-6.08) M/uL Hgb 13.8 L (14.0-18.0) g/dl Hct 41.6 (40.1-51.0) % MCV 79.2 L (80.0-100.0) fL MCH 26.3 (25.0-34.0) pg MCHC 33.2 (32.0-36.0) g/dL RDW Std Deviation 44.7 (36.4-46.3) fL RDW Coeff of Yazmin 15.9 H (11.5-14.5) % Plt Count 267 (130-400) K/uL MPV 9.1 L (9.4-12.4) fL Immature Gran % (Auto) 0.3 % Neut % (Auto) 84.7 % Lymph % (Auto) 7.7 % [place] % (Auto) 4.2 % Eos % (Auto) 2.1 % Baso % (Auto) 1.0 % Neut # (Auto) 7.58 H (1.4-6.5) K/uL Lymph # (Auto) 0.69 L (1.2-3.4) K/uL [place] # (Auto) 0.38 (0.24-0.82) K/uL Eos # (Auto) 0.19 (0-0.50) K/uL Baso # (Auto) 0.09 (0-0.2) K/uL Immature Gran # (Auto) 0.03 H (0.00-0.02) K/uL Sodium 136 (136-145) mmol/L Potassium 3.4 L (3.5-5.1) mmol/L Chloride 99 (98-107) mmol/L Carbon Dioxide 28 (21-32) mmol/L Anion Gap 9 (3-11) BUN 29 H (6-23) mg/dl Creatinine 2.22 H (0.6-1.4) mg/dl Est Cr Clr Drug Dosing 61.1 ml/min Est GFR ( Amer) 40.6 ml/min Est GFR (Non-Af Amer) 35.0 ml/min BUN/Creatinine Ratio 13.1 (10-20) Glucose 109 H (70-99(Fasting)) mg/dl Calcium 10.0 (8.5-10.1) mg/dl Total Bilirubin 0.9 (0.2-1.0) mg/dl AST 17 (13-39) U/L ALT 15 (7-52) U/L Alkaline Phosphatase 59 (34-104) U/L Total Protein 7.7 (6.0-8.3) gm/dl Albumin 4.4 (3.4-5.0) gm/dl Globulin 3.3 (2.5-4.0) gm/dl Albumin/Globulin Ratio 1.3 (0.9-2) Lipase 51 (11-82) U/L Urine Color Yellow Urine Appearance Clear (Clear) Urine pH 5.0 (4.5-7.5) Ur Specific [place] 1.022 (1.000-1.030) Urine Protein Trace H (Negative) Urine Glucose (UA) Negative (Negative) Urine Ketones Trace H (Negative) Urine Blood Negative (Negative) Urine Nitrite Negative (Negative) Urine Bilirubin Negative (Negative) Urine Urobilinogen Negative (Negative) Ur Leukocyte Esterase Negative (Negative) Urine WBC (Auto) 1-5 (0-5) /hpf Urine RBC (Auto) 0-4 (0-4) /hpf U Hyaline Cast (Auto) 1-5 (0-5) /lpf U Epithel Cells (Auto) >30 H (0-5) /lpf Urine Bacteria (Auto) 1+ H (Negative) Ur Renal Epithelial Cell Not Reportable SARS-CoV-2, RNA, NAAT (NEGATIVE) 12/22/21 Range/Units 15:45 WBC (4.8-10.8) K/ul RBC (4.63-6.08) M/uL Hgb (14.0-18.0) g/dl Hct (40.1-51.0) % MCV (80.0-100.0) fL MCH (25.0-34.0) pg MCHC (32.0-36.0) g/dL RDW Std Deviation (36.4-46.3) fL RDW Coeff of Yazmin (11.5-14.5) % Plt Count (130-400) K/uL MPV (9.4-12.4) fL Immature Gran % (Auto) % Neut % (Auto) % Lymph % (Auto) % [place] % (Auto) % Eos % (Auto) % Baso % (Auto) % Neut # (Auto) (1.4-6.5) K/uL Lymph # (Auto) (1.2-3.4) K/uL [place] # (Auto) (0.24-0.82) K/uL Eos # (Auto) (0-0.50) K/uL Baso # (Auto) (0-0.2) K/uL Immature Gran # (Auto) (0.00-0.02) K/uL Sodium (136-145) mmol/L Potassium (3.5-5.1) mmol/L Chloride (98-107) mmol/L Carbon Dioxide (21-32) mmol/L Anion Gap (3-11) BUN (6-23) mg/dl Creatinine (0.6-1.4) mg/dl Est Cr Clr Drug Dosing ml/min Est GFR ( Amer) ml/min Est GFR (Non-Af Amer) ml/min BUN/Creatinine Ratio (10-20) Glucose (70-99(Fasting)) mg/dl Calcium (8.5-10.1) mg/dl Total Bilirubin (0.2-1.0) mg/dl AST (13-39) U/L ALT (7-52) U/L Alkaline Phosphatase (34-104) U/L Total Protein (6.0-8.3) gm/dl Albumin (3.4-5.0) gm/dl Globulin (2.5-4.0) gm/dl Albumin/Globulin Ratio (0.9-2) Lipase (11-82) U/L Urine Color Urine Appearance (Clear) Urine pH (4.5-7.5) Ur Specific [place] (1.000-1.030) Urine Protein (Negative) Urine Glucose (UA) (Negative) Urine Ketones (Negative) Urine Blood (Negative) Urine Nitrite (Negative) Urine Bilirubin (Negative) Urine Urobilinogen (Negative) Ur Leukocyte Esterase (Negative) Urine WBC (Auto) (0-5) /hpf Urine RBC (Auto) (0-4) /hpf U Hyaline Cast (Auto) (0-5) /lpf U Epithel Cells (Auto) (0-5) /lpf Urine Bacteria (Auto) (Negative) Ur Renal Epithelial Cell SARS-CoV-2, RNA, NAAT NEGATIVE (NEGATIVE) Imaging Data Attestation: I personally reviewed and interpreted this imaging study as follows: Radiologist's Impression: Abdomen/Pelvis CT 12/22/21 13:10 CT SCAN OF THE ABDOMEN AND PELVIS WITHOUT IV CONTRAST CLINICAL HISTORY: Right flank pain. COMPARISON STUDY: Abdominal CT dated 12/01/2021. TECHNIQUE: CT scan of the abdomen and pelvis is performed from the lung bases to the proximal femora. Images are reviewed in the axial, sagittal, and coronal planes. IV contrast was not administered for this examination. A dose lowering technique was utilized adhering to the principles of ALARA. CT DOSE: 1585.88 mGy.cm FINDINGS: Lung bases: The heart is normal in size noting trace pericardial effusion. Fibrotic change is noted in the lingula. Parenchymal scarring is seen in the right lower lobe, and this is similar to previous. There is no airspace consolidation typical for pneumonia or pleural effusion. Liver: The unenhanced liver is top normal in size and demonstrates diffusely diminished attenuation indicating steatosis. There is no intrahepatic biliary ductal dilatation. Gallbladder: Surgically absent noting clips in the gallbladder fossa. Spleen: Normal in size and attenuation. Pancreas: There is minimal infiltration between the pancreatic head and the duodenum as discussed below. The unenhanced pancreas is mildly atrophic and otherwise grossly unremarkable. No peripancreatic fluid collection is identified. Adrenal glands: Unremarkable. Kidneys: The unenhanced kidneys are normal in size and without hydronephrosis. There are no renal calculi identified. There is no evidence of contour deforming renal mass lesion. Abdominal vasculature: The abdominal aorta is normal in course and caliber. Bowel: There is minimal infiltration between the pancreatic head and the duodenum, with mild duodenal wall thickening. There are scattered colonic diverticula without CT evidence of acute diverticulitis. No bowel obstruction is seen. The appendix is well-visualized and normal. Peritoneum: There is no intraperitoneal free air or abdominal ascites. There is a fat-containing umbilical hernia. Lymphadenopathy: There are shotty retroperitoneal, iliac chain, and inguinal lymph nodes. These are not pathologically enlarged by size criteria. Pelvic viscera: The prostate gland is diminutive. The bladder and seminal vesicles are normal as imaged. Skeletal structures: No lytic or blastic lesions are seen. IMPRESSION: 1. There is faint infiltration between the pancreatic head and the duodenum with mild associated duodenal wall thickening. The appearance is nonspecific and could be to a minimal groove pancreatitis versus possible duodenitis or ulcer disease. Correlate with clinical and laboratory findings. If warranted endoscopy could be considered for further assessment of the duodenum. 2. There are shotty retroperitoneal, iliac chain, and inguinal lymph nodes which are not pathologically enlarged by size criteria. These may be reactive and clinical correlation will be required. These can be followed if clinically warranted. 3. Hepatic steatosis. 4. Additional findings as above. ACT 112: Negative or not required by law. Electronically signed by: Sarath Carrizales M.D. 12/22/2021 2:43 PM Chest X-Ray 12/22/21 15:35 SINGLE VIEW CHEST CLINICAL HISTORY: Generalized abdominal pain. FINDINGS: An AP, portable, upright chest radiograph is compared to study dated 02/13/2021. The cardiomediastinal silhouette is top normal for projection. The lungs and pleural spaces are clear. No pneumothorax is seen. The bony thorax is grossly intact. IMPRESSION: No active disease in the chest. ACT 112: Negative or not required by law. Electronically signed by: Sarath Carrizales M.D. 12/22/2021 4:05 PM MDM Narrative Continuous monitoring tech: Order was placed for continuous monitoring tech. Patient was placed on the monitoring tech. Patient was noted to be in normal sinus rhythm at an initial rate of 70 bpm. The patient is a 41-year-old male who presents today complaining of abdominal pain. Patient has had intermittent abdominal pain for the past month. He was found to have an acute kidney injury on labs. Noncontrast CT was performed and patient does have scattered lymphadenopathy throughout the abdomen and pelvis. This was seen on imaging earlier this month but patient has not followed up. Given the continued pain and acute kidney injury, I do feel patient warrants hospitalization. Case was discussed with the [facility] hospitalist service who agreed to evaluate the patient for further care. Impression & Plan BRADLEY (acute kidney injury), Abdominal pain, Abdominal lymphadenopathy Discharge Plan Visit Data Chief Complaint: Abdominal Pain Stated Complaint: ABDOMINAL PAIN ED Provider: Miguel Harris ED Midlevel Provider: Radha Fishman Discharge Problem: BRADLEY (acute kidney injury), Abdominal pain, Abdominal lymphadenopathy Patient Disposition: Admitted As Inpatient Discharge Instructions Interventions: ED Discharge Assessment Last Done: 12/22/21 18:26
[2021-12-22 12:07] LABS: Basophils # (auto) 0.09 K/uL (0-0.2); Eosinophils # (auto) 0.19 K/uL (0-0.50); Eosinophils % (auto) 2.1 %; Hematocrit (blood only) 41.6 % (40.1-51.0); Hemoglobin 13.8 g/dl (14.0-18.0); Immature Granulocytes # (auto) 0.03 K/uL (0.00-0.02); Immature Granulocytes % (auto) 0.3 %; Lymphocytes # (auto) 0.69 K/uL (1.2-3.4); Lymphocytes % (auto) 7.7 %; Mean Corpuscular Hemoglobin 26.3 pg (25.0-34.0); Mean Corpuscular Hgb Conc 33.2 g/dL (32.0-36.0); Mean Corpuscular Volume 79.2 fL (80.0-100.0); Mean Platelet Volume 9.1 fL (9.4-12.4); Monocytes # (auto) 0.38 K/uL (0.24-0.82); Monocytes % (auto) 4.2 %; Neutrophils # (auto) 7.58 K/uL (1.4-6.5); Neutrophils % (auto) 84.7 %; Platelet Count 267 K/uL (130-400); RDW Coefficient of Variation 15.9 % (11.5-14.5); RDW Standard Deviation 44.7 fL (36.4-46.3); Red Blood Count 5.25 M/uL (4.63-6.08); White Blood Count 8.96 K/ul (4.8-10.8)
[2021-12-22 12:30] LABS: Albumin Globulin Ratio 1.3 (0.9-2); Albumin Level 4.4 gm/dl (3.4-5.0); BUN Creatinine Ratio 13.1 (10-20); Bilirubin,Total 0.9 mg/dl (0.2-1.0); Creatinine Clr Calc Pharmacy 61.1 ml/min; Est GFR (African American) 40.6 ml/min; Globulin 3.3 gm/dl (2.5-4.0); Potassium 3.4 mmol/L (3.5-5.1); Total Protein 7.7 gm/dl (6.0-8.3)
[2021-12-22 13:38] LABS: Appearance Urine Clear (Clear); Bilirubin Urine Negative (Negative); Blood Urine Negative (Negative); Color Urine Yellow; Epithelial Cell Urine Auto >30 /lpf (0-5); Glucose Urine UA Negative (Negative); Ketones Urine Trace (Negative); Leukocyte Esterase Urine Negative (Negative); Nitrite Urine Negative (Negative); Protein Urine Trace (Negative); RBC Urine Automated 0-4 /hpf (0-4); Specific Gravity Urine 1.022 (1.000-1.030); Urobilinogen Urine Negative (Negative)
[2021-12-22 13:56] LABS: Bacteria Urine Automated 1+ (Negative)
--- NOTE | 2021-12-22 14:45 | CT Scan Report ---
CT SCAN OF THE ABDOMEN AND PELVIS WITHOUT IV CONTRAST CLINICAL HISTORY: Right flank pain. COMPARISON STUDY: Abdominal CT dated 12/01/2021. TECHNIQUE: CT scan of the abdomen and pelvis is performed from the lung bases to the proximal femora. Images are reviewed in the axial, sagittal, and coronal planes. IV contrast was not administered for this examination. A dose lowering technique was utilized adhering to the principles of ALARA. CT DOSE: 1585.88 mGy.cm FINDINGS: Lung bases: The heart is normal in size noting trace pericardial effusion. Fibrotic change is noted i n the lingula. Parenchymal scarring is seen in the right lower lobe, and this is similar to previous. There is no airspace consolidation typical for pneumonia or pleural effusion. Liver: The unenhanced liver is top normal in size and demonstrates diffusely diminished attenuation i ndicating steatosis. There is no intrahepatic biliary ductal dilatation. Gallbladder: Surgically absent noting clips in the gallbladder fossa. Spleen: Normal in size and attenuation. Pancreas: There is minimal infiltration between the pancreatic head and the duodenum as discussed bel ow. The unenhanced pancreas is mildly atrophic and otherwise grossly unremarkable. No peripancreatic fluid collection is identified. Adrenal glands: Unremarkable. Kidneys: The unenhanced kidneys are normal in size and without hydronephrosis. There are no renal escobar culi identified. There is no evidence of contour deforming renal mass lesion. Abdominal vasculature: The abdominal aorta is normal in course and caliber. Bowel: There is minimal infiltration between the pancreatic head and the duodenum, with mild duodenal wall thickening. There are scattered colonic diverticula without CT evidence of acute diverticulitis . No bowel obstruction is seen. The appendix is well-visualized and normal. Peritoneum: There is no intraperitoneal free air or abdominal ascites. There is a fat-containing umbi lical hernia. Lymphadenopathy: There are shotty retroperitoneal, iliac chain, and inguinal lymph nodes. These are n ot pathologically enlarged by size criteria. Pelvic viscera: The prostate gland is diminutive. The bladder and seminal vesicles are normal as imag ed. Skeletal structures: No lytic or blastic lesions are seen. IMPRESSION: 1. There is faint infiltration between the pancreatic head and the duodenum with mild associated duod enal wall thickening. The appearance is nonspecific and could be to a minimal groove pancreatitis krisitan nabil possible duodenitis or ulcer disease. Correlate with clinical and laboratory findings. If warrant ed endoscopy could be considered for further assessment of the duodenum. 2. There are shotty retroperitoneal, iliac chain, and inguinal lymph nodes which are not pathological ly enlarged by size criteria. These may be reactive and clinical correlation will be required. These can be followed if clinically warranted. 3. Hepatic steatosis. 4. Additional findings as above. ACT 112: Negative or not required by law. Electronically signed by: Sarath Carrizales M.D. 12/22/2021 2:43 PM
[2021-12-22] MEDS ORDERED: ONDANSETRON INJ 2 MG/ML 2 ML VIAL IV STA (15:30)
[2021-12-22] MEDS ORDERED: SODIUM CHLORIDE 0.9% 1000ML 1,000 ML IV ONE (15:30)
[2021-12-22] MEDS ORDERED: HYDROmorphone INJ 1 MG/ML SYRINGE IV STA (15:30)
--- NOTE | 2021-12-22 16:06 | XRay Report ---
SINGLE VIEW CHEST CLINICAL HISTORY: Generalized abdominal pain. FINDINGS: An AP, portable, upright chest radiograph is compared to study dated 02/13/2021. The cardiom ediastinal silhouette is top normal for projection. The lungs and pleural spaces are clear. No pneumo thorax is seen. The bony thorax is grossly intact. IMPRESSION: No active disease in the chest. ACT 112: Negative or not required by law. Electronically signed by: Sarath Carrizales M.D. 12/22/2021 4:05 PM
[2021-12-22] MEDS ORDERED: GI COCKTAIL ED USE PO STA (16:41)
[2021-12-22] MEDS ORDERED: FAMOTIDINE 20 MG in SYRINGE 3 ML IV STA (16:43)
[2021-12-22] MEDS ORDERED: FAMOTIDINE 20MG/5ML IV PUSH IV STA (16:45)
--- NOTE | 2021-12-22 16:49 | History & Physical Report ---
Date of Service December 22, 2021 Assessment & Plan (1) Abdominal pain: Plan: Unclear if related to GERD - will give GI cocktail and famotidine 20mg IV to see if helpful Otherwise would recommend EGD although potentially this could be performed as outpatient - will consult gastroenterology Alternatively maybe related to lymphadenopathy which given history of blastomycosis ?related - will defer further workup to GI Low suspicion of bile duct pathology and CBD not dilated and LFTs normal. Possible related to chest pathology but given abnormal findings abdominal CT as above even though pain not reproducible on exam I suspect it is related to these findings. (2) Abdominal lymphadenopathy: Plan: Unclear if this is causing his abdominal pain as above - further workup deferred to GI (3) BRADLEY (acute kidney injury): Plan: Suspect pre-renal Will get renal artery duplex due to concern for secondary hypertension BP actually low normal therefore maybe hypoperfusing his kidney especially with HCTZ Stop HCTZ, ok to continue other anti-hypertensives (4) Hypertension: Plan: Continue amlodipine, lisinopril and metoprolol succinate Renal arterial duplex US to assess for ADAL as part of secondary hypertension workup - recommend further workup through his PCP (5) Supraventricular tachycardia: Plan: s/p ablation for Ptop-[id number] Plan VTE Prophylaxis - low risk, chemical prophylaxis deferred Diet - clear liquids, advance diet as tolerated Disposition - observation status to med/surg Admission and Anticipated Discharge Date Admission Date: December 22, 2021 History of Present Illness Chief Complaint: Abdominal pain. elevated Cr Primary Care Provider: NO PCP Alfonso Floyd is a 41 year old male who presents to the ER with abdominal pain. He reports this has been going on intermittently for 3 weeks although increasing in frequency and severity during this time. Right upper abdominal pain radiates to back, worse on inspiration. Not positional. No worse on palpation. No known exacerbating factors and does not appear to change with food. Around midnight last night it woke him up, lasted for 10 minutes with intense pain and then was much milder around 6/10 on arrival to the ER. During this time he had 10 minutes where is completely resolved.over three weeks getting more frequent and. Tried Rolaids but it didn't do much. 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 Prior acute cholecystitis he reports the pain is similar to this s/p cholecystectomy. He had similar symptoms on 12/01/21 and came to the ER and Cr was elevated at 1.96. 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 However despite drinking "a ton" of water his Cr today is 2.22. Therefore he was referred to medicine for admission and ongoing management of abdominal pain and BRADLEY. Allergies Allergy/AdvReac Type Severity Reaction Status Date / Time No Known Allergies Allergy Verified 12/22/21 15:42 Home Medications Medication Instructions Recorded Confirmed Type metoprolol succinate 200 mg 200 mg PO DAILY #90 tabs 04/05/21 12/22/21 Rx tablet,extended release 24 hr (Toprol XL) amlodipine 5 mg tablet 5 mg PO DAILY #90 tabs 05/02/21 12/22/21 Rx lisinopril 20 2 tab PO DAILY #180 tabs 05/22/21 12/22/21 Rx mg-hydrochlorothiazide 12.5 mg tablet Past Med/Surg History Medical History Acute cholecystitis Asthma Hx without PFTs on file. Managed with ICS/LABA + albuterol PRN Cardiomyopathy Dyslipidemia Hypertension Long standing managed with metoprolol + lisinopril + HCTZ LBBB (left bundle branch block) Obesity Obstructive sleep apnea Polysomnography (03/16) demonstrated AHI 13.2, repeat (01/16) with AHI 6. Weight reduction recommended. No longer using CPAP. Prediabetes Supraventricular tachycardia [place] to be due to concealed left-sided bypass tract, symptomatic episode (2014) s/p ablation. Initially with HFrEF now recovered. Continued on medical management with BB. Tobacco use disorder Surgical History H/O cardiac radiofrequency ablation History of oral surgery Hx laparoscopic cholecystectomy (01/18/19) Laparoscopic Cholecystectomy Dr. Kinsey 01-18-19 S/P ablation of accessory bypass tract Family History Other Adopted Social History Smoking Status: Former smoker Tobacco Type: E-cigarettes / Vaping Smoking End Date: stopped cigarette use three years ago; Second Hand Exposure: No; Do You Dip or Chew Tobacco: No; Tobacco Cessation Education Requested by Patient: No Hx Alcohol Use: Yes Alcohol type: beer Hx Substance Use: Yes Last Used Substance Other:: "early November" Preferred Language: Armenian Communication Ability: Effective Field Director Required: No Beliefs That Will Affect Care: None marital status: Single Current Living Situation: Alone current occupational status: employed current occupation: cook Other Information That Helps Us Care for You: No Feels Safe at Home: Yes Safety Concerns: Feels Safe At This Time Dental Care, Regularly: No Physical Activity Frequency: 1-2 Times per Week Seatbelt Use: always Sunscreen Use: Yes Assistive Devices: Contacts and Glasses Review of Systems Review of Systems: All systems reviewed & are unremarkable except as noted in HPI & below Physical Exam Constitutional: WD/WN, vitals as above Eyes: + anicteric sclerae; normal pupil size ENMT: external ear and nose normal, oropharynx normal Neck: trachea midline, no thyromegaly Respiratory: normal respiratory effort, lungs clear to auscultation Cardiovascular: RRR, no murmur, no edema Gastrointestinal (Abdomen): normal bowel sounds, soft, nontender, no hepatosplenomegaly (pt having RUQ pain but unable to reproduce) Musculoskeletal: no cyanosis or clubbing, extremities motor strength 5/5 Skin: no rashes, warm and dry Neurologic: moves all extremities and awake; not confused Psychiatric: A+Ox3, euthymic affect Genitourinary: no CVA tenderness Results & Data Results & Data ([facility]) Vital Signs (Past 12 Hours) Vital Signs Temp Pulse Pulse Resp BP BP Pulse Ox 12/22/21 15:20 75 21 121/71 98 12/22/21 13:26 84 21 102/81 98 12/22/21 11:53 78 18 95 12/22/21 11:26 77 22 101/73 95 12/22/21 11:31 36.8 C 82 18 122/74 97 O2 Del Method 12/22/21 15:20 Room Air 12/22/21 13:26 Room Air 12/22/21 11:53 Room Air 12/22/21 11:26 Room Air 12/22/21 11:31 Room Air Laboratory Results Abnormal lab results 12/22/21 12/22/21 12/22/21 Range/Units 11:56 11:56 13:23 Hgb 13.8 L (14.0-18.0) g/dl MCV 79.2 L (80.0-100.0) fL RDW Coeff of Yazmin 15.9 H (11.5-14.5) % MPV 9.1 L (9.4-12.4) fL Neut # (Auto) 7.58 H (1.4-6.5) K/uL Lymph # (Auto) 0.69 L (1.2-3.4) K/uL Immature Gran # (Auto) 0.03 H (0.00-0.02) K/uL Potassium 3.4 L (3.5-5.1) mmol/L BUN 29 H (6-23) mg/dl Creatinine 2.22 H (0.6-1.4) mg/dl Glucose 109 H (70-99(Fasting)) mg/dl Urine Protein Trace H (Negative) Urine Ketones Trace H (Negative) U Epithel Cells (Auto) >30 H (0-5) /lpf Urine Bacteria (Auto) 1+ H (Negative) Diagnostic Findings SINGLE VIEW CHEST CLINICAL HISTORY: Generalized abdominal pain. FINDINGS: An AP, portable, upright chest radiograph is compared to study dated 02/13/2021. The cardiomediastinal silhouette is top normal for projection. The lungs and pleural spaces are clear. No pneumothorax is seen. The bony thorax is grossly intact. IMPRESSION: No active disease in the chest. CT SCAN OF THE ABDOMEN AND PELVIS WITHOUT IV CONTRAST CLINICAL HISTORY: Right flank pain. COMPARISON STUDY: Abdominal CT dated 12/01/2021. TECHNIQUE: CT scan of the abdomen and pelvis is performed from the lung bases to the proximal femora. Images are reviewed in the axial, sagittal, and coronal planes. IV contrast was not administered for this examination. A dose lowering technique was utilized adhering to the principles of ALARA. CT DOSE: 1585.88 mGy.cm FINDINGS: Lung bases: The heart is normal in size noting trace pericardial effusion. Fibrotic change is noted in the lingula. Parenchymal scarring is seen in the right lower lobe, and this is similar to previous. There is no airspace consolidation typical for pneumonia or pleural effusion. Liver: The unenhanced liver is top normal in size and demonstrates diffusely diminished attenuation indicating steatosis. There is no intrahepatic biliary ductal dilatation. Gallbladder: Surgically absent noting clips in the gallbladder fossa. Spleen: Normal in size and attenuation. Pancreas: There is minimal infiltration between the pancreatic head and the duodenum as discussed below. The unenhanced pancreas is mildly atrophic and otherwise grossly unremarkable. No peripancreatic fluid collection is identified. Adrenal glands: Unremarkable. Kidneys: The unenhanced kidneys are normal in size and without hydronephrosis. There are no renal calculi identified. There is no evidence of contour deforming renal mass lesion. Abdominal vasculature: The abdominal aorta is normal in course and caliber. Bowel: There is minimal infiltration between the pancreatic head and the duodenum, with mild duodenal wall thickening. There are scattered colonic diverticula without CT evidence of acute diverticulitis. No bowel obstruction is seen. The appendix is well-visualized and normal. Peritoneum: There is no intraperitoneal free air or abdominal ascites. There is a fat-containing umbilical hernia. Lymphadenopathy: There are shotty retroperitoneal, iliac chain, and inguinal lymph nodes. These are not pathologically enlarged by size criteria. Pelvic viscera: The prostate gland is diminutive. The bladder and seminal vesicles are normal as imaged. Skeletal structures: No lytic or blastic lesions are seen. IMPRESSION: 1. There is faint infiltration between the pancreatic head and the duodenum with mild associated duodenal wall thickening. The appearance is nonspecific and could be to a minimal groove pancreatitis versus possible duodenitis or ulcer disease. Correlate with clinical and laboratory findings. If warranted endoscopy could be considered for further assessment of the duodenum. 2. There are shotty retroperitoneal, iliac chain, and inguinal lymph nodes which are not pathologically enlarged by size criteria. These may be reactive and clinical correlation will be required. These can be followed if clinically warranted. 3. Hepatic steatosis. 4. Additional findings as above. Medications Administered ER Medications Given: NSS 1L bolus Ondansetron 4mg IV Dilaudid 1mg IV Code Status & VTE Plan Code Status Full VTE Prophylaxis Plan VTE Prophylaxis will be ordered: No Reason for no VTE drug order: Treatment not indicated Reason for no VTE mechanical prophylaxis: Treatment not indicated PG Care Time/CCT Total # of Minutes Spent Total Time Spent with Patient: Total time spent is greater than 50% in coordination of care (as documented) at patient's floor/unit and/or counseling patient: Coding Level of Care Code INT OBSERVATION CARE 70M LVL 3 Diagnoses Abdominal pain R10.9 Abdominal lymphadenopathy R59.0 BRADLEY (acute kidney injury) N17.9 Hypertension I10 Supraventricular tachycardia I47.1
[2021-12-22] MEDS ORDERED: ONDANSETRON INJ 2 MG/ML 2 ML VIAL IV PRN (18:45)
[2021-12-22] MEDS ORDERED: ACETAMINOPHEN 325 MG TAB PO PRN (18:45)
--- NOTE | 2021-12-22 20:28 | Ultrasound Report ---
DOPPLER ULTRASOUND OF THE RENAL ARTERIES CLINICAL HISTORY: Hypertension. COMPARISON STUDY: Abdominal CT dated 12/22/2021. TECHNIQUE: Doppler sonography of the renal arteries was performed to assess renal artery stenosis. Im ages are reviewed in the transverse and longitudinal planes. FINDINGS: The kidneys appear normal in size and echotexture. The right kidney measures 10.8 cm in length and th e left kidney measures 11.8 cm in length. There is no hydronephrosis. On the right, intrarenal arterial resistive indices range from 0.41 to 0.59. Intrarenal arterial wave forms are normal with brisk upstrokes. The right renal arterial waveform is normal, and velocities wi thin the right renal artery measure up to 67 cm/sec. The right renal vein is patent. On the left, intrarenal arterial resistive indices range from 0.52 to 0.55. Intrarenal arterial wave forms are normal with brisk upstrokes. The left renal arterial waveform is normal, and velocities wit hin the left renal artery measure up to 74 cm/sec. The left renal vein is patent. The abdominal aorta is patent. Velocities within the abdominal aorta measure up to 94 cm/s. IMPRESSION: There is no sonographic evidence of renal artery stenosis. ACT 112: Negative or not required by law. Electronically signed by: Sarath Carrizales M.D. 12/22/2021 8:26 PM
[2021-12-22] MEDS: LACTATED RINGER'S 1,000 ML IV SCH (20:30)
[2021-12-23] MEDS: LACTATED RINGER'S 1,000 ML IV SCH (04:01)
--- NOTE | 2021-12-23 06:28 | Billing Data ---
Date of Service December 23, 2021 Coding Level of Care Code 78914 Inpt Consult Level 5 History Detailed Exam Detailed Medical Decision Making Low Complexity
[2021-12-23 06:44] LABS: BUN Creatinine Ratio 15.7 (10-20); Calcium 8.5 mg/dl (8.5-10.1); Creatinine Clr Calc Pharmacy 101.2 ml/min; Est GFR (African American) 74.7 ml/min; Est GFR (Non-African American) 64.4 ml/min; Potassium 3.2 mmol/L (3.5-5.1)
[2021-12-23] MEDS ORDERED: PANTOprazole 40 MG in SYRINGE 0 ML IV SCH (09:00)
[2021-12-23] MEDS ORDERED: METOPROLOL SUCC 50MG EXT REL TAB PO SCH (09:00)
[2021-12-23] MEDS ORDERED: amLODIPine BESYLATE 5 MG TAB PO SCH (09:00)
[2021-12-23] MEDS ORDERED: lisinopril 40 MG TAB PO SCH (09:00)
[2021-12-23] MEDS ORDERED: POTASSIUM CHLORIDE CRTAB 20 MEQ TABCR PO STA (09:14)
--- NOTE | 2021-12-23 09:26 | Consultation Report ---
DATE OF CONSULTATION: 12/23/2021 SEX: Male. RACE: . ATTENDING PHYSICIAN: Dr. Avtar Foster. CONSULTING PHYSICIAN: Stan Ruiz DO. REASON FOR CONSULTATION: Abdominal pain, lymphadenopathy. HISTORY OF PRESENT ILLNESS: The patient is a 41-year-old male with a past medical history of obstructive sleep apnea, SVT and cardiomyopathy, who presented to the Department of Emergency Medicine on 12/22/2021 with complaints of abdominal pain. He states that he has been having right sided abdominal pain intermittently over the past several weeks and noted that he had associated nausea but no vomiting. He described the pain as radiating to his right back. He did present to the ER a few weeks ago for similar pain and was given IV fluids, stating that he was told he was dehydrated at that time. Upon arrival to the Department of Emergency Medicine, he underwent laboratory studies, which showed a normal white blood cell count and slightly low hemoglobin of 13.8, potassium 3.4, BUN 29, creatinine 2.22. His liver panel was normal. Lipase was normal and his UA was unremarkable. COVID test was negative. He did undergo a CT scan of the abdomen and pelvis, which showed infiltration between the pancreatic head and the duodenum as well as a shotty retroperitoneal iliac chain in inguinal lymph nodes, which were considered not to be pathologically enough large. He was also noted to have hepatic steatosis. He was subsequently admitted and did undergo a renal ultrasound, which was negative. He was given Zofran as needed. At the time that I saw the patient, he states that he was feeling better than on arrival. He was still complaining of right sided pain that states that he feels better. He denied any urinary symptoms. He described the pain as chronic aching right upper quadrant radiating to his back. He denied any further nausea, vomiting and denied any fevers, chills, hematemesis, melena, or hematochezia. He had no further complaints. PAST MEDICAL HISTORY: Significant for cardiomyopathy, left bundle branch block, obesity, obstructive sleep apnea, hypertension, SVT, asthma. PAST SURGICAL HISTORY: Includes cardiac radiofrequency ablation, laparoscopic cholecystectomy, ablation of accessory bypass tract. ALLERGIES: None. MEDICATIONS: At present include Tylenol 650 mg p.o. q. 4 hours, amlodipine 5 mg p.o. daily, Zestril 40 mg p.o. q.a.m., Toprol 200 mg p.o. daily, Zofran 4 mg IV q. 6 hours p.r.n. SOCIAL HISTORY: He is a former smoker. He does vape. Denies any illicit drug use. Does drink beer occasionally. FAMILY HISTORY: Negative for GI malignancy or inflammatory bowel disease. REVIEW OF SYSTEMS: Negative x12 system review other than pertinent positives listed in the HPI. PHYSICAL EXAMINATION: VITAL SIGNS: Temperature 36.6, pulse 61, respirations 18, blood pressure 106/70, pulse ox 93% on room air. GENERAL: He is awake and cooperative, no acute distress. HEENT: Normocephalic, atraumatic. EYES: Pupils equal, round. Extraocular muscles are intact. ENT: External evaluation of ears and nose are normal. Oropharynx is clear. NECK: Soft, supple. CHEST: Clear to auscultation bilaterally. CARDIOVASCULAR: Regular rate and rhythm. ABDOMEN: Soft, tender in the right upper quadrant, nondistended, positive bowel sounds. There is no hepatosplenomegaly or stigmata of chronic liver disease. EXTREMITIES: No clubbing, cyanosis or edema. LABORATORY STUDIES AND RADIOGRAPHIC STUDIES: Were reviewed in the HPI. ASSESSMENT AND PLAN: A 41-year-old male with abdominal pain in the right upper quadrant as well as abnormal CT imaging with questionable pancreatitis versus duodenitis. PLAN: At the present time, I would recommend that the patient be placed on Protonix 40 mg IV b.i.d. I believe that likely cause of the patient's symptoms is a duodenal ulcer versus duodenitis as he does take NSAIDs at home. I did not see any emergent need for endoscopy at this time, I would recommend advancing his diet as he tolerates it and will follow his clinical course throughout his hospitalization. He will most likely need an endoscopy as an outpatient, though I do not see any emergent need for this at this time. Once again, thanks for allowing me to participate in the care of this patient. If you have any further questions, please do not hesitate in contacting me. Job ID: [id number] [id number]
--- NOTE | 2021-12-23 11:58 | Discharge Summary ---
Date of Service December 23, 2021 Admission HPI Per Admitting Provider Alfonso Floyd is a 41 year old male who presents to the ER with abdominal pain. He reports this has been going on intermittently for 3 weeks although increasing in frequency and severity during this time. Right upper abdominal pain radiates to back, worse on inspiration. Not positional. No worse on palpation. No known exacerbating factors and does not appear to change with food. Around midnight last night it woke him up, lasted for 10 minutes with intense pain and then was much milder around 6/10 on arrival to the ER. During this time he had 10 minutes where is completely resolved.over three weeks getting more frequent and. Tried Rolaids but it didn't do much. 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 Prior acute cholecystitis he reports the pain is similar to this s/p cholecystectomy. He had similar symptoms on 12/01/21 and came to the ER and Cr was elevated at 1.96. 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 However despite drinking "a ton" of water his Cr today is 2.22. Therefore he was referred to medicine for admission and ongoing management of abdominal pain and BRADLEY. Principal Diagnosis 1. Abdominal pain - gerd v gastritis v duodenitis/duodenal ulcer 2. Abdominal lymphadenopathy 3. BRADLEY - resolved Discharge Exam GENERAL: 41 yo morbidly obese middle aged WM. NAD. LUNGS: Clear to auscultation bilaterally. No W/R/R. CARDIOVASCULAR: Regular rate and rhythm. No M/G/R. No JVD. ABDOMEN: Soft, non-tender and non-distended. BS normoactive x 4 quad. EXTREMITIES: No edema. Non-tender. Peripheral pulses +2/4. NEUROLOGIC: A&O x3. PSYCHIATRIC: Cooperative. Appropriate mood and affect. SKIN: Warm, dry, intact. No rashes or lesions. Discharge Data Allergies Allergy/AdvReac Type Severity Reaction Status Date / Time No Known Allergies Allergy Verified 12/22/21 15:42 Consultations 12/22/21 18:45 Consult Gastroenterology Routine Ordered Studies Abdomen/Pelvis CT 12/22/21 13:10 CT SCAN OF THE ABDOMEN AND PELVIS WITHOUT IV CONTRAST CLINICAL HISTORY: Right flank pain. COMPARISON STUDY: Abdominal CT dated 12/01/2021. TECHNIQUE: CT scan of the abdomen and pelvis is performed from the lung bases to the proximal femora. Images are reviewed in the axial, sagittal, and coronal planes. IV contrast was not administered for this examination. A dose lowering technique was utilized adhering to the principles of ALARA. CT DOSE: 1585.88 mGy.cm FINDINGS: Lung bases: The heart is normal in size noting trace pericardial effusion. Fibrotic change is noted in the lingula. Parenchymal scarring is seen in the right lower lobe, and this is similar to previous. There is no airspace consolidation typical for pneumonia or pleural effusion. Liver: The unenhanced liver is top normal in size and demonstrates diffusely diminished attenuation indicating steatosis. There is no intrahepatic biliary ductal dilatation. Gallbladder: Surgically absent noting clips in the gallbladder fossa. Spleen: Normal in size and attenuation. Pancreas: There is minimal infiltration between the pancreatic head and the duodenum as discussed below. The unenhanced pancreas is mildly atrophic and otherwise grossly unremarkable. No peripancreatic fluid collection is identified. Adrenal glands: Unremarkable. Kidneys: The unenhanced kidneys are normal in size and without hydronephrosis. There are no renal calculi identified. There is no evidence of contour deforming renal mass lesion. Abdominal vasculature: The abdominal aorta is normal in course and caliber. Bowel: There is minimal infiltration between the pancreatic head and the duodenum, with mild duodenal wall thickening. There are scattered colonic diverticula without CT evidence of acute diverticulitis. No bowel obstruction is seen. The appendix is well-visualized and normal. Peritoneum: There is no intraperitoneal free air or abdominal ascites. There is a fat-containing umbilical hernia. Lymphadenopathy: There are shotty retroperitoneal, iliac chain, and inguinal lymph nodes. These are not pathologically enlarged by size criteria. Pelvic viscera: The prostate gland is diminutive. The bladder and seminal vesicles are normal as imaged. Skeletal structures: No lytic or blastic lesions are seen. IMPRESSION: 1. There is faint infiltration between the pancreatic head and the duodenum with mild associated duodenal wall thickening. The appearance is nonspecific and could be to a minimal groove pancreatitis versus possible duodenitis or ulcer disease. Correlate with clinical and laboratory findings. If warranted endoscopy could be considered for further assessment of the duodenum. 2. There are shotty retroperitoneal, iliac chain, and inguinal lymph nodes which are not pathologically enlarged by size criteria. These may be reactive and clinical correlation will be required. These can be followed if clinically warranted. 3. Hepatic steatosis. 4. Additional findings as above. ACT 112: Negative or not required by law. Electronically signed by: Sarath Carrizales M.D. 12/22/2021 2:43 PM Chest X-Ray 12/22/21 15:35 SINGLE VIEW CHEST CLINICAL HISTORY: Generalized abdominal pain. FINDINGS: An AP, portable, upright chest radiograph is compared to study dated 02/13/2021. The cardiomediastinal silhouette is top normal for projection. The lungs and pleural spaces are clear. No pneumothorax is seen. The bony thorax is grossly intact. IMPRESSION: No active disease in the chest. ACT 112: Negative or not required by law. Electronically signed by: Sarath Carrizales M.D. 12/22/2021 4:05 PM Renal Artery Duplex 12/22/21 17:10 DOPPLER ULTRASOUND OF THE RENAL ARTERIES CLINICAL HISTORY: Hypertension. COMPARISON STUDY: Abdominal CT dated 12/22/2021. TECHNIQUE: Doppler sonography of the renal arteries was performed to assess renal artery stenosis. Images are reviewed in the transverse and longitudinal planes. FINDINGS: The kidneys appear normal in size and echotexture. The right kidney measures 10.8 cm in length and the left kidney measures 11.8 cm in length. There is no hydronephrosis. On the right, intrarenal arterial resistive indices range from 0.41 to 0.59. Intrarenal arterial waveforms are normal with brisk upstrokes. The right renal arterial waveform is normal, and velocities within the right renal artery measure up to 67 cm/sec. The right renal vein is patent. On the left, intrarenal arterial resistive indices range from 0.52 to 0.55. Intrarenal arterial waveforms are normal with brisk upstrokes. The left renal arterial waveform is normal, and velocities within the left renal artery measure up to 74 cm/sec. The left renal vein is patent. The abdominal aorta is patent. Velocities within the abdominal aorta measure up to 94 cm/s. IMPRESSION: There is no sonographic evidence of renal artery stenosis. ACT 112: Negative or not required by law. Electronically signed by: Sarath Carrizales M.D. 12/22/2021 8:26 PM Hospital Course (1) Abdominal pain: - Unclear if related to GERD v. Gastritis v. duodenitis - was given GI cocktail and famotidine 20mg IV to see if helpful - Low suspicion of bile duct pathology and CBD not dilated and LFTs normal. - Gastroenterology consulted, seen by Dr. Ruiz this AM, appreciate input - No plan for emergent/urgent EGD, can be done as outpatient - GI recommended adding PPI, will plan to rx upon discharge - Diet advanced for lunch and pt tolerated well - For now, would follow a GERD diet, avoid NSAIDs - F/u with gastroenterology as outpatient for EGD (2) Abdominal lymphadenopathy: - Unclear if this is contributing to his abd pain although less likely as his pain has subsided today - ?related to blastomycosis (3) BRADLEY (acute kidney injury): - Suspect pre-renal - Will get renal artery duplex due to concern for secondary hypertension which showed no evidence of ADAL - BP actually low normal therefore maybe hypoperfusing his kidney especially with HCTZ - Stop HCTZ, ok to continue other anti-hypertensives - Hydrated overnight with IVF and his creatinine has normalized from 2.22 to 1.34 (4) Hypertension: - Continue amlodipine, lisinopril and metoprolol succinate - Renal arterial duplex US - no evidence of ADAL (5) Supraventricular tachycardia: - s/p ablation for [id number] Plan At this time, pt is medically and hemodynamically stable for discharge. Will ultimately stop HCTZ and just continue plain Lisinopril. Rx sent to pharmacy for Lisinopril and Protonix. Follow up with GI office to schedule outpatient EGD. Would advise f/u with pcp within 1 week. Plan has been d/w Dr. Howard who has also seen and evaluated this patient prior to d/c and agrees with aforementioned. Total Time Total Time Spent Total Time Spent (In Minutes): <30 minutes Discharge Plan Discharge Items Patient Disposition: Home - Self-Care Reason For Visit: BRADLEY, ABDOMINAL PAIN Discharge Diagnosis: abdominal pain-possible acid reflux Activity: Resume your previous activity Non-emergency contact: Primary Care Provider and [employer] Call non-emergency contact if: you have any medication questions and your symptoms worsen Follow-up/Referrals: Stan Ruiz, [Physician] - (1-2 weeks ) PCP,NO [Primary Care Provider] - Diet: Regular Diet Comment: Follow GERD diet recommendations Addtl Attending Provider Instructions: You were hospitalized due to symptoms of abdominal pain which is suspected to be related to either inflammation or possibly an ulcer in your stomach/small intestine/esophagus. You were treated with IV fluids and medications to reduce/suppress stomach acid. You were seen by stomach doctors (Dr. Ruiz) who recommended that you be started on Protonix (which is suppresses stomach acid) 40mg, one tablet twice each day (morning and evening). You will be discharged home on this medication. You will also need to start following a diet that reduces the amount of acidic foods that you are consuming. Lastly, you will need to call Dr. Ruiz's office to schedule a follow up and to arrange for a scope which will be performed under sedation where they can directly visualize your esophagus, stomach, and duodenum (first part of your small intestine) and obtain biopsies. In the meantime, STOP using Non-steroidal anti-inflammatories such as Advil, Ibuprofen, Motrin, Aleve as these medications can wear down the lining of your stomach/esophagus/intestines. Your kidney function was also reduced when you came in which is likely due to some mild dehydration in addition to the Hydrochlorothiazide (a medication which makes you pee off more fluid) which is part of your blood pressure medication. You were given some IV fluids and your Hydrochlorothiazide was stopped. You will just be sent home on Lisinopril (without Hydrochlorothiazide) for your blood pressure. A new prescription has been sent to your pharmacy. We advise you to follow up with your family healthcare provider within 1 week of discharge. If you have any questions following your discharge, call the nonemergency number listed on your discharge paperwork. In the event of a medical emergency, call 911. Pending Studies at Discharge: No Stand-Alone Forms: [facility], Smoking Cessation Medications and DC Order Prescriptions: New lisinopril [Zestril] 40 mg Tablet 40 mg PO QAM Qty: 30 0RF pantoprazole [Protonix] 40 mg tablet,delayed release (DR/EC) 40 mg PO BID Qty: 60 0RF Continued metoprolol succinate [Toprol XL] 200 mg tablet extended release 24 hr 200 mg PO DAILY Qty: 90 3RF amlodipine 5 mg tablet 5 mg PO DAILY Qty: 90 3RF Discontinued lisinopril-hydrochlorothiazide 20-12.5 mg tablet 2 tab PO DAILY Qty: 180 3RF Discharge Orders: Discharge Order (Routine); Ordered 12/23/21 Ordered By: Joy Lu/Other Patient Handouts: What Is GERD?, GERD Lifestyle Changes Admission Data Admit Date/Time: 12/22/21 17:10 Attending Provider: Italo Howard Admit Provider: Avtar Foster Primary Care Provider: PCP,NO Other Providers: Stan Ruiz Other Interventions: Discharge Summary Assessment (RN) Last Done: 12/23/21 15:11 Supervising Physician Co-Signing Physician Notes Patient seen and examined, chart reviewed, case discussed with Mirella Davenport PA-C and I agree with the assessment and plan as above except as otherwise noted. Abdominal pain suspicious for GERD, hemodynamically stable. Seen by gastroenterology, will continue on PPI and have outpatient follow-up for EGD. Clinically improved with Pepcid and PPI. Prerenal BRADLEY which improved. At bedside patient is without pain, heart rate regular, lungs are clear, abdomen is nontender to palpation. Management as above Coding Level of Care Code 06368 OBS Care - Discharge Diagnoses Abdominal pain R10.9 Abdominal lymphadenopathy R59.0 BRADLEY (acute kidney injury) N17.9 Hypertension I10 Supraventricular tachycardia I47.1
== END 2021-12-23 16:18 | disposition home or self-care (01) ==
LOC: 3E 11:25 → ED 11:25 → SUATTDRO 17:10 → 3E 18:26